=== PATIENT | male | born 1960 | race Caucasian/White ===

== ENCOUNTER 2023-04-23 05:57 | Day surgery (SDC) | payer BC, SELFPAY ==
[2023-04-23] VITALS (8 sets, daily range): BP systolic 100–121; BP diastolic 46–61; BMI 25.4
[2023-04-23] MEDS: LOW STRENGTH ASPIRIN 81 MG PO (07:20)
[2023-04-23] MEDS: NSS 255 ML IV (07:50)
--- NOTE | 2023-04-23 08:46 | ITS.CL.CATH ---
Pl Sql Programmer - Catheterization
Cardiac Catheterization
Procedure Report:
CARDIAC CATHETERIZATION REPORT
Date of Procedure: 04/23/2023
Referring: Cesar Rivera MD
INDICATIONS: Severe, symptomatic aortic insufficiency.
HEMODYNAMIC DATA
AO: 122/55 (88)
LV: 116
PCWP:
PA: (26)
RV:
RA:
LEFT VENTRICULOGRAPHY: Not performed.
AORTOGRAPHY: Ascending aortography shows a mildly dilated aortic root with 4+ aortic insufficiency.
CORONARY ANGIOGRAPHY
Dominance: Codominant.
Left Main: The left main is large sized and angiographically normal.
LAD: The left anterior descending is a large sized vessel that wraps the apex serving to medium diagonal branches. The entire system is angiographically normal.
Circumflex: The left circumflex is a large size, codominant vessel that serves a large bifurcating ramus intermedius, a small lateral marginal branch, 2 medium inferolateral marginal branches, and several small branch vessels to the left PDA
territory. The entire system is angiographically normal.
RCA: The right coronary artery is a medium sized, codominant vessel that serves several small branch vessels to the inferior myocardium. The entire system is angiographically normal.
Closure Device: Not applicable. Radial band utilized for radial artery hemostasis without issue.
Radiation dose (mGy): 473.01
DAP (cm2.Gy): 49.3332
Fluoro Time (minutes): 5.7
CONCLUSIONS:
1. Severe, symptomatic aortic insufficiency.
2. No angiographic evidence of coronary artery disease.
3. Moderately elevated wedge and left ventricular end-diastolic pressure with otherwise normal right and left heart catheterization pressures.
RECOMMENDATIONS:
1. Strongly recommend aortic valve replacement in the near future as an outpatient.
2. Continued preventative medical management.
Copy to: Cesar Rivera MD, Lucio Garcia MD
Torito Frank MD, [facility]
[2023-04-23] MEDS: NSS 1000 IV (10:15)
== END 2023-04-23 11:55 | disposition home or self-care (01) ==
LOC: CATH 05:57
PROVIDERS: ATTENDING PHYSICIAN Internal Medicine Interventional Cardiology; FAMILY PHYSICIAN Family Medicine; OTHER PHYSICIAN Internal Medicine Cardiovascular Disease
DX: I08.3 Combined rheumatic disorders of mitral, aortic and tricuspid valves (principal); I77.810 Thoracic aortic ectasia; Z79.82 Long term (current) use of aspirin
CPT/HCPCS: 93312; 93320; 93325; 93460; 93567; C1894; Q9967

== ENCOUNTER → 2023-05-03 07:43 | Outpatient (REF) | payer BC, SELFPAY | LOC: HWRAD 07:43 | PROVIDERS: ATTENDING PHYSICIAN Thoracic Surgery (Cardiothoracic Vascular Surgery); FAMILY PHYSICIAN Family Medicine; REFERRING PHYSICIAN Internal Medicine Cardiovascular Disease | DX: I34.0 Nonrheumatic mitral (valve) insufficiency (principal); I35.1 Nonrheumatic aortic (valve) insufficiency; Z01.818 Encounter for other preprocedural examination | CPT/HCPCS: 71275; 74174; Q9967 ==

== ENCOUNTER 2023-05-14 04:53 | Inpatient (IN) | payer BC, SELFPAY ==
[2023-04-30 08:22] VITALS: BMI 26.0
[2023-04-30 09:04] LABS: Urine Albumin Negative (Neg - Trace); Urine Bilirubin Negative (Negative); Urine Character Clear (Clear); Urine Color Yellow; Urine Glucose Negative (Negative); Urine Ketone Negative (Negative); Urine Leukocyte Negative (Negative); Urine Nitrite Negative (Negative); Urine Occult Blood Negative (Negative); Urine Urobilinogen Negative (Neg - 1+)
[2023-04-30 09:10] LABS: Glycohemoglobin (HgbA1c) 5.1 % (4.0-5.6)
[2023-04-30 09:11] LABS: % Basophils 0.4 % (0-2); % Eosinophils 2.7 % (0-6); % Immature Granulocytes 0.6 % (0-0.5); % Lymphocytes 16.3 % (20.5-51.1); Absolute Eosinophils 0.2 10^3/uL (0-0.7); Absolute Lymphocytes 1.2 10^3/uL (1.2-3.4); Absolute Monocytes 0.4 10^3/uL (0.1-0.6); Absolute Neutrophils 5.2 10^3/uL (1.4-6.5); Hematocrit 44.7 % (39.0-52.0); Hemoglobin 15.9 g/dL (13.0-18.0); Mean Corp Hgb Conc. 35.6 g/dL (33.0-37.0); Mean Corpuscular Hgb 31.5 pg (27.0-31.0); Mean Corpuscular Volume 88.5 fL (80.0-94.0); Mean Platelet Volume 11.4 fL (7.4-10.4); Nucleated Red Blood Cells % 0 % (-); Platelet Count 173 10^3/uL (130-400); Red Blood Cell Count 5.05 10^6/uL (4.70-6.10); Red Cell Dist. Width 13.4 % (11.5-14.5)
[2023-04-30 09:15] LABS: INR 1.12; PT 14.2 Sec (11.4-14.6)
[2023-04-30 09:24] LABS: ALT (SGPT) 34 U/L (0-50); AST (SGOT) 30 U/L (17-59); Albumin 4.1 g/dl (3.5-5.0); Alkaline Phosphatase 55 U/L (38-126); Blood Urea Nitrogen 23 mg/dl (9-20); Calcium 9.7 mg/dl (8.4-10.2); Carbon Dioxide 29 mmol/L (22-30); Chloride 101 mmol/L (98-107); Direct Bilirubin 0.3 mg/dl (0.0-0.4); Estimated Creatinine Clearance 100 ml/min; Glucose 106 mg/dl (70-99); Potassium 4.6 mmol/L (3.5-5.1); Sodium 138 mmol/L (135-145); Total Bilirubin 1.1 mg/dl (0.2-1.3); Total Protein 6.8 g/dl (6.3-8.2); eGFR > 60.00
--- NOTE | 2023-04-30 09:54 | CM ---
Chart reviewed. Met with the patient is PAT, Patient is independent of ADLS, lives with his in a 2 STH, 0 JAIRO through the garage but has a full flight of stairs to get to the main living space, 0 DME. Patient does use CPAP at night and is
going to bring it with him day of surgery. Patient is working. 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 Reviewed preoperative and postoperative instructions and restrictions, along with showering guidelines.
Gave patient 2 soaps. Patient is agreeable to a home visit by CT Transitional RN. Plan is for the patient to return home.
[2023-05-14] VITALS (13 sets, daily range): BP systolic 80–118; BP diastolic 48–76; PULSE 84; BMI 25.0
--- NOTE | 2023-05-14 00:22 | W.PN.CT ---
Assessment / Plan
-
Assessment:
-S/p Reoperative sternotomy with standard aortic and right femoral vein cannulation/Ascending Aorta and Aortic root replacement with a 29 mm valve conduit/Patch repair of right atrium using sioux pericardium/ Extensive adhesiolysis, by Dr. Garcia,
05/14/23, pod#1
-Severe AI
-Dilated Asc./thoracic aorta (4.2 cm)
-A-fib/flutter S/P ablation, 07/08/21
-Mild to moderate MR
-Mild TR
-LVEF 50% postop per intraop DAHIANA
-Hx of severe MR S/p R minithoracotomy with MV Repair (38 mm annuloplasty ring with [place]-Ventura cords to A2 scallop), 04/11/[address] Dawkins
-SOL (uses CPAP)
-Former tobacco use (quit 11 years ago)
-Lung nodule
-BPH (on Finasteride)
-Perforated diverticulitis S/P Laparoscopic sigmoid resection with creation of Luke pouch, 04/13/16
-S/P Colostomy reversal, 08/04/16
-Acute postop blood loss/anemia (transfused 3 {5pks} plts)
-Acute postop atelectasis/pleural effusion
-Acute postop hypovolemia with subsequent hypervolemia
-Acute postop sinus bradycardia 50's S/p temporary pacer dependent (AV paced @ 80 bpm)
-Acute postop hematuria (clearing)
Plan:
-No major issues overnight. Hemodynamically and neurologically intact
-Successfully extubated yesterday 05/14/23 @ 1740
-Weaned off Levophed overnight, remains on Dobutamine @ 2.5, Milrinone @ 0.25, and insulin gtt per protocol. Amiodarone and LR gtts d/c'd
-Last CI 2.4, SVO2 ,U/O since OR 1055 mL
-Monitor chest tube output: 2meds /
-Cont. current meds (ASA, Lipitor; hold Amiodarone and BB while on inotropes and paced)
-Maintain swan and a-line while on inotropes
-Will D/C insulin gtt/transfer to telemetry phase once swan and a-line out
-Consider maintaining carey another day given hx of BPH on Finasteride and postop hematuria
-Maintain cordis
-Maintain temporary pacer wires (will cut before d/c home)
-Encourage use of IS
-Wean off of O2
-OOB into chair
-Ambulate
Subjective
-
Date of Service: May 14, 2023
Objective Data
-
Lab Results
04/30/23 08:37
04/30/23 08:37
PT 14.2 Sec (11.4-14.6) 04/30/23 08:37
INR 1.12 04/30/23 08:37
APTT 36.0 Sec (23.4-35.0) H 04/30/23 08:37
--- NOTE | 2023-05-14 05:46 | W.CVOR.SURPR ---
CVOR Surgeon Immed Pre Op
-
I have examined this patient prior to performance of the scheduled procedure.
The patient's condition is unchanged from the time of the dictated/written History and
Physical and the patient is able to undergo the scheduled procedure.
Reoperative cardiac surgery
Aortic root replacement
MELANIE Exclusion
+/- Mitral Valve repair
+/- Additional Ablation lines
[2023-05-14] MEDS: LOPRESSOR 25 MG PO (06:04)
[2023-05-14] MEDS: PROTONIX 40 MG PO (06:04)
[2023-05-14] MEDS: BACTROBAN 2% OINTMENT 1 APPLIC NASAL ×2 (06:04→20:03)
[2023-05-14] MEDS: MAGNESIUM OXIDE 500 MG PO (06:04)
[2023-05-14 07:39] LABS: Urine Albumin Negative (Neg - Trace); Urine Bilirubin Negative (Negative); Urine Character Clear (Clear); Urine Color Yellow; Urine Glucose Negative (Negative); Urine Ketone Negative (Negative); Urine Leukocyte Negative (Negative); Urine Nitrite Negative (Negative); Urine Occult Blood Negative (Negative); Urine Specific Gravity 1.015 (<1.030); Urine Urobilinogen Negative (Neg - 1+)
[2023-05-14 07:52] LABS: ACT+ - POC 112 Seconds (82-134)
[2023-05-14 07:55] LABS: B.E. - POC -3.7 mmol/L; Glucose - POC 111 mg/dl (65-99); HCO3 - POC 22 mmol/L (21-29); Hematocrit - POC 37 % PCV (42-52); Hemodilution- POC No; Hemoglobin Calculated - POC 12.4; Ionized Calcium - POC 1.19 mmol/L (1.12-1.27); O2 Saturation %Calculated-POC 99.3 5 (92-96); PCO2 - POC 40 mmHg (35-45); PO2 - POC 158 mmHg (80-100); Potassium - POC 3.8 mmol/L (3.6-5.0); Sodium - POC 138 mmol/L (135-145); pH - POC 7.34 (7.35-7.45)
[2023-05-14 09:30] LABS: B.E. - POC 0.7 mmol/L; Glucose - POC 123 mg/dl (65-99); HCO3 - POC 25 mmol/L (21-29); Hematocrit - POC 32 % PCV (42-52); Hemodilution- POC Yes; Hemoglobin Calculated - POC 10.8; PCO2 - POC 38 mmHg (35-45); PO2 - POC 370 mmHg (80-100); Potassium - POC 5.5 mmol/L (3.6-5.0); Sodium - POC 140 mmol/L (135-145); pH - POC 7.43 (7.35-7.45)
--- NOTE | 2023-05-14 09:47 | CM ---
pt in OR today, cm to follow.
[2023-05-14 10:15] LABS: B.E. - POC -1.7 mmol/L; Glucose - POC 161 mg/dl (65-99); HCO3 - POC 24 mmol/L (21-29); Hematocrit - POC 35 % PCV (42-52); Hemodilution- POC Yes; Hemoglobin Calculated - POC 11.8; Ionized Calcium - POC 1.06 mmol/L (1.12-1.27); O2 Saturation %Calculated-POC 99.9 5 (92-96); PCO2 - POC 42 mmHg (35-45); PO2 - POC 315 mmHg (80-100); Potassium - POC 6.2 mmol/L (3.6-5.0); Sodium - POC 139 mmol/L (135-145); pH - POC 7.36 (7.35-7.45)
[2023-05-14 10:20] LABS: ACT+ - POC 985 Seconds (82-134)
[2023-05-14 11:02] LABS: ACT+ - POC 955 Seconds (82-134)
[2023-05-14 11:06] LABS: B.E. - POC -0.1 mmol/L; Glucose - POC 160 mg/dl (65-99); HCO3 - POC 25 mmol/L (21-29); Hematocrit - POC 32 % PCV (42-52); Hemodilution- POC Yes; Hemoglobin Calculated - POC 10.9; Ionized Calcium - POC 1.09 mmol/L (1.12-1.27); O2 Saturation %Calculated-POC 99.9 5 (92-96); PCO2 - POC 39 mmHg (35-45); PO2 - POC 342 mmHg (80-100); Potassium - POC 6.1 mmol/L (3.6-5.0); Sodium - POC 139 mmol/L (135-145); pH - POC 7.41 (7.35-7.45)
[2023-05-14 11:53] LABS: ACT+ - POC 101 Seconds (82-134)
[2023-05-14 12:04] LABS: B.E. - POC -0.2 mmol/L; Glucose - POC 154 mg/dl (65-99); HCO3 - POC 25 mmol/L (21-29); Hematocrit - POC 30 % PCV (42-52); Hemodilution- POC Yes; Hemoglobin Calculated - POC 10.1; Ionized Calcium - POC 1.36 mmol/L (1.12-1.27); O2 Saturation %Calculated-POC 99.3 5 (92-96); PCO2 - POC 40 mmHg (35-45); PO2 - POC 149 mmHg (80-100); Potassium - POC 4.5 mmol/L (3.6-5.0); Sodium - POC 143 mmol/L (135-145)
--- NOTE | 2023-05-14 13:13 | W.PN.CT.SURG ---
CT Surgery Operative Note
-
CARDIAC SURGERY OPERATIVE REPORT
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
Postoperative Diagnosis: Same
Procedure(s) Performed:
1. Reoperative sternotomy with standard aortic and right femoral vein cannulation
2. Ultrasound-guided access to the right common femoral vessels
3. Ascending Aorta and Aortic root replacement with a 29 mm valve conduit
4. Patch repair of right atrium using hughes pericardium
5. Extensive adhesiolysis
6. Placement of temporary atrial ventricular pacing wires
7. Transesophageal echocardiography
Date of Surgery: 05/14/23
Comorbidities:
1. History of open cardiac surgery, mitral valve repair
2. Severe dilated cardiomyopathy with acute on chronic congestive heart failure secondary to her severe aortic valve insufficiency from primary leaflet pathology combination of leaflet pathology and dilated root aneurysm
3. Diverticular disease status post sigmoidectomy for perforation and colostomy reversal
4. Recurrent mitral valve insufficiency, mild to moderate
5. Paroxysmal atrial tachycardia and atrial fibrillation status post ablation
6. SOL on CPAP
7. Lung nodule
Attending Surgeon: Percy Garcia MD, MS
Assistants: Casper Trujillo PA-C (present and necessary to assistant wrestling coach, retraction, suction, exposure, suture management, and wound closure under my direction)
Anesthesiology: Joel Kaiser MD and Matthew Mohr CRNA
Scrub and Circulating RNs: Vidhi Garcia RN, Mee Curry RN
Heel Sorter: Heath Lundberg CCP
Anesthesia: GETA
EBL: per perfusion records
Products: 3 plts
CPB Time: 170 minutes
Aortic Cross Clamp Time: 113 minutes
Indication(s) for Procedures: This is a 62-year-old male with previous mitral valve repair via thoracotomy in 2017. He had recurrent mitral valve insufficiency that was mild to moderate however more concerning that he had severe aortic valve
insufficiency that seem to have worsened over time. His LV was also distended with an end-diastolic over end-systolic dimension of 7 cm over 5 cm. His root was also dilated to approximately 5 cm on my review his annulus was significantly enlarged.
The mechanism of his aortic valve insufficiency appeared to be from a combination of the root dilation as well as primary leaflet pathology and prolapse. He had new onset symptoms of shortness of breath even with light activity and significant
fatigue. He met stage D symptomatology and possible indication for intervention.
Aortic Valve Description: Severely dilated annulus of over 3 cm, multiple leaflet fenestrations and prolapse of the left coronary cusp, root was dilated over 5 cm, left and right coronary ostia within normal hughes positions with the right slightly
higher in the sinus due to displacement from the aneurysm, ascending aorta was relatively normal in size and shape.
Findings: Left ventricular ejection fraction was approximately 50% with no significant regional wall motion abnormalities. He had severe LV dilation of over 7 cm and 5 cm in the end diastolic/end-systolic dimensions, respectively. RV function was
normal. PA pressures were in the 30s. He had mild to moderate mitral valve insufficiency secondary to prolapsing and scarring of the posterior leaflet with an eccentric jet that was directed anteriorly. There were dense adhesions upon entry to
the pericardium that required adhesiolysis as tissue was relatively friable with very thin right atrial tissue. Chest with traction of the pericardium, there was a tear of the right atrium that required pericardial patching. The aortic valve
leaflets were resected accordingly with minimal calcifications. The root size to be approximately 3.3 cm to 3.5 cm. The left and right coronary buttons were harvested in the usual fashion, and a total of 17 everting pledgeted 2 Ethibond sutures
were placed in order to help shrink down the annular size to accommodate a 29 mm valved conduit. Core knots were used to secure the pledgets in place and the coronary buttons were reimplanted using 5-0 Prolene in a running fashion. I did look at
the mitral valve through the root, however given the complex nature of the recurrent MR and the possibility of causing additional damage requiring a second pump run, I elected to leave the mitral valve alone. The heart was densely encased in scar
tissue and so I did not take out the left atrial appendage or performed maze procedure. Upon coming off of cross-clamp, there were 2 events of ventricular fibrillation likely secondary to air entrainment down the right coronary button requiring
electrical cardioversion. Following this, he was in slow bradycardic rhythm and required AV pacing. Function of the bioprosthesis was as expected, and there was no significant bleeding from around the base of the root. There was some bleeding
from the left coronary button at the 12 o'clock position which was repaired with 6-0 Prolene suture and packing with hemostatic agents. His cardiac function after cardiopulmonary bypass remained approximately 45-50% with no regional wall motion
abnormalities aside from the pacing. He did require inotropic support as expected with such a good LV was placed on low-dose milrinone and dobutamine with Levophed titrate for pressure. He was given a total of 3 units of platelets for coagulopathy
and did not require any other blood products for now. RV function was normal and flow was visualized by echocardiogram through the left main on Doppler.
Specimen(s): Aortic valve leaflets.
Prosthesis:
1. 29mm BOWLING KONECT Valved Conduit, SN [id number].
2. Bovine Pericardium, SN [id number].
Description of Procedure: The patient was taken to the operating room. Their identity and procedure to be performed were verified and they were positioned supine on the operating table. Induction via general anesthesia with endotracheal intubation
was performed and central venous access and arterial monitoring were inserted. A preoperative transesophageal echocardiogram was performed to assess cardiac function and valvular function. The patient was then prepped and draped from chin to feet in
a sterile fashion. A preoperative time-out was performed with all members of the team present. Ultrasound-guided access using Seldinger technique was performed to the right common femoral vessels in the event we encountered bleeding on entry. A
midline chest incision was performed along with median sternotomy. Upon entry to the pericardium, there was dense adhesions from his previous operation. Adhesions were particularly bad at the right atrium to pericardium on the right side. With
just gentle traction the pericardium there was a large tear of the right atrium requiring manual control and full heparinization was given (a total of 40,000 units). I then placed pursestring sutures at the ascending aorta and cannulated in the
usual fashion a soft spot free of calcium or disease. There is an appropriate balance and correlation and pressures of the line after being tested.. At this point, I cannulated the right common femoral vein using Seldinger technique and DAHIANA
guidance to visualize the wire across the SVC. A 25 mm femoral cannula was inserted into the right common femoral vein up into the SVC. The ACT was confirmed to be over 400 and retrograde autologous priming was performed before commencing
cardiopulmonary bypass. Now, I continued adhesiolysis on cardiopulmonary bypass and used hughes pericardium to patch repair the right atrial tear. We created a pericardial well. The pulmonary artery was away from the aorta to facilitate a
clamp site and aortotomy. A retrograde coronary sinus catheter was placed for the RA with DAHIANA guidance. The aortic cross-clamp was placed after decreasing the flow on the bypass and mean arterial pressure. An aortotomy was created to decompress the
heart and a total of combination dose of 1.2L of Del-Nido cardioplegia solution was given via retrograde with visual confirmation of flow in the left main and direct right/left ostial cardioplegia and planned for re-dosing every 90 minutes as
necessary. There was rapid electro-mechanical arrest of the heart at 800 cc (once 100cc of cardioplegia was given down the R coronary ostia) of cardioplegia. Cold slush was placed into a sponge and topically on the RV while we systemically cooled to
32 degrees centigrade.
Carbon dioxide was used to flood the field. The location of both left and right coronary vessels were visualized in the root. The aorta was fully transected above the STJ. Stay sutures were placed at each commissure to facilitate exposure. The
leaflets were excised and sent for pathological assessment. Stay sutures were placed at Next, the aortic sinuses were resected and the left main and right coronary buttons were mobilized. 4-0 pledgeted sutures were used to retract the buttons. A
total of 17 pledgeted 2-0 ethibond annular sutures were placed in an everted fashion circumferentially. These were brought through the sewing cuff of the valved conduit which as then parachuted into place. A Cor-Knot device was used to secure the
annular sutures. An eye cautery was used to first create a small opening to perform left main coronary button anastomosis. The button was then trimmed accordingly and using 5-0 Prolene, the button was reimplanted toward the Joe-left sinus. Volume
was then used to fill the heart to estimate the location for the right coronary button anastomosis. In a similar fashion an eye cautery was used to create a small opening in the joe-right sinus and anastomosis was created with 5-0 Prolene running
fashion. The root was then pressurized with cardioplegia to assess for hemostasis of both coronary buttons. The ascending aorta was then resected and the valved conduit was trimmed accordingly. The distal anastomosis was performed with a running
4-0 Prolene in a single layer using bovine pericardium as a gasket.
De-airing maneuvers were performed and temporary bipolar ventricular pacing wires were placed on the anterior of the right ventricle and temporary atrial pacing wires at the right atrial appendage. The patient was placed in a Trendelenburg position
and flows on bypass were lowered. The aortic cross clamp was removed and flows were slowly brought back up. The suture lines appeared hemostatic. Transesophageal echocardiography revealed no AI and appropriate prosthetic function. Once de-airing
was satisfactory, the ascending aortic root vent was removed. After verifying acceptable parameters, we initiated weaning from cardiopulmonary bypass. Once we were off cardiopulmonary bypass, the venous cannula was clamped and removed. The
retrograde coronary sinus catheter was removed. A test dose of protamine was administered and the patient was monitored for any adverse reaction before resuming protamine. Once half of the protamine dose was delivered, pump suckers were turned off
and the systolic blood pressure was lowered for aortic decannulation. The aortic cannula was removed and pursestrings were tied down. All cannulation sites were oversewn with a 4-0 prolene. There were still some bleeding around the 12o'clock
position that required a single 6-0 prolene suture in a [id number] fashion and packing with hemostatic agents. The suture lines were inspected and hemostasis was confirmed. Mediastinal hemostasis was obtained. Two 24Fr Renard drains were placed
within the pericardium. The sternum was approximated with 4 #7 single and 3 #8 double stainless steel wires. Fascia was approximated with #1 vicryl suture. The subcutaneous, dermis and epidermis were closed in layers in a running fashion. The skin
wound was cleansed and dressed.
All instrument, sponge, and needle counts were confirmed to be correct x 2 at the end of the operation. The patient was transferred to the cardiac intensive care unit in critical but stable condition.
I, Dr. Percy Garcia, was present, scrubbed for, and performed all critical elements of this procedure.
Percy Garcia MD, MS
Cardiothoracic Surgeon
[facility]
This dictation was created using the Quire dictation system. Please excuse any grammatical, typographical, or 'sound alike' errors
[2023-05-14 13:18] LABS: ACT+ - POC > 1003 Seconds (82-134)
[2023-05-14 13:18] LABS: ACT+ - POC > 1003 Seconds (82-134)
--- NOTE | 2023-05-14 13:18 | W.PN.CD ---
Addendum entered and electronically signed by Andrzej Nina MD 05/14/23 15:43:
I saw and examined the patient.
The CERTIFIED OPHTHALMIC TECHNICIAN's note was reviewed and I agree with the note.
Comment: Intraop DAHIANA report, post surgery EKG reviewed. Labs reviewed. Case reviewed with ICU nurse and Dr. Garcia. Doing well after AVR/root. Critically ill. Monitor closely.
Original Note:
Today's Communication / Plan
-
Follow telemetry
Impression / Plan
-
Background: 62M with �previous mitral valve repair via right minithoracotomy (38 mm ring annuloplasty with [place]-Ventura cords placed to the A2 scallop, 2016) with AI presents for AVR
Primary Java Software Developer: Dr. Cesar Rivera
Impression/Plan:
Severe aortic insufficiency S/P reoperative sternotomy with standard aortic and right femoral vein cannulation on 05/13/[address] Garcia
-Ascending Aorta and Aortic root replacement with a 29 mm valve conduit & patch repair of right atrium using rincon pericardium
-On milrinone, Levophed, & dobutamine, Wann in place
-Pre LVEF 50%, post 45-50% without RWMA
-Goal SBP <100mmHg
Acute blood loss anemia R/T cardiac surgery S/P platelet x 3 in OR
Mitral regurgitation S/P MV repair (2016), mild to moderate regurgitation
Paroxysmal atrial fibrillation S/P ablation 06/2021
-Sinus rhythm
-Oral Anticoagulation: None
-[id number]: 0 (<del>Heart</del> <del>failure,</del> <del>HTN,</del> <del>age</del> <del>73</del> <del>or</del> <del>more,</del> <del>Diabetes</del> <del>Mellitus,</del> <del>prior</del> <del>Stroke/TIA,</del> <del>Vascular</del>
<del>disease,</del> <del>age</del> <del>65-74,</del> <del>female</del> <del>gender</del>)
Perforated sigmoid diverticulitis w/ feculent peritonitis S/P Luke's procedure (2017) & subsequent reversal of colostomy
Paroxysmal atrial tachycardia S/P ablation
Former smoker, continued cessation recommended
Subjective:
Intubated and sedated on mechanical ventilation.
Physical Exam
Vital Signs/Labs
05/13/23 05/14/23 05/15/23
06:59 06:59 06:59
Actual Weight 82 kg
PT 14.2 Sec (11.4-14.6) 04/30/23 08:37
INR 1.12 04/30/23 08:37
APTT 36.0 Sec (23.4-35.0) H 04/30/23 08:37
Physical Exam
Constitutional: No acute distress and Comfortable
EENT: Anicteric and Moist mucous membranes
Cardiovascular: Rhythm & rate is regular (bradycardia) and S1S2 is normal
Respiratory: Lungs clear to auscul.
GI: Soft, Distention absent and Flat
Neuro/Psych: Other (sedated)
Other: Skin (warm and dry)
Data Reviewed
-
Date of Service: May 14, 2023
[2023-05-14] MEDS: ALBUMIN 5% 250 IV ×3 (13:30→16:42)
--- NOTE | 2023-05-14 13:34 | W.PN.UPDATE ---
Update Note
Progress Note Update
62 y/o male with PMHx of MVR and AI was seen in the office by Dr. Garcia presents electively for a AVR on 05/14/23
IV fluids: 1450ml
U.O.:� 300
UF:� 1400
Blood:� 3 plts
Wires:� A + V
Inotropes:� Dobutamine and Milrinone
Pressors:� Levophed
Sedatives:� Precedex
�
NEURO: sedated on precedex, pupils +2mm B/L
RESP: #8OT @24cm> 14/550/60/5 Lungs clear B/L. 2 mediastinal (15cc on arrival) chest tubes to -20cm suction. Sanguineous drainage
CV: RRR +S1, S2, no S3, no�rub, no murmur. Dermabond to median sternotomy. RIJ w/Carlisle locked @ 54cm. PA ; CVP 4;
ABD: round, soft, no BS
EXT: no edema, +1/4 DP pulses B/L, no femoral bruit, left radial A-line intact
: Carey with clear red urine
�
A/P: POD #0 s/p AVR #29mm [place] Konect valve
DAHIANA: EF�45-50%
- wean and extubate
- Right venous cannulation (must remove rubber stopped pre-discharge)
- will need instruction regarding antibiotic prophylaxis for dental and invasive procedures
- F/U MVO2, ABG, CXR, and post-op labs
- Weaned milrinone first and then keep dobutamine overnight as CI allows
- Titrate medications to goal SBP 80-100/ MAP > 60
- Continue swan; monitor CO/CI
- Hold off on ASA today
- F/U EKG
- Repeat TTE in 48 hours
- Cardiology consulted
�
# acute surgical blood loss anemia-expected
- trend CBC
- Transfusion goal Hgb >8.0
- s/p 3plts in the OR
- Hold Post-op ASA�
�
# Hyperglycemia
- insulin infusion x 24h
- SSI as needed when tolerating PO
#Hematuria
- Monitor for clots
- Continue carey
#Hx of GI perf
- Clear liquid x48 hrs
�
[2023-05-14 13:35] LABS: Glucose - Point of Care 159 mg/dl (70-99)
[2023-05-14 13:45] LABS: B.E. 0.6 mmol/L; Hematocrit 33.5 % (39.0-52.0); Hemoglobin 12.6 g/dL (13.0-18.0); Ionized Calcium 1.27 mMOL/L (1.15-1.33); O2 Saturation % 97.9 % (94-98); PCO2 44 mmHg (35-48); PO2 88 mmHg (83-108); Platelet Count 153 10^3/uL (130-400); Sodium 140 mMOL/L (136-145); pH 7.38 (7.35-7.45)
[2023-05-14 13:47] LABS: Mixed Venous O2 Saturation 64.7 %
[2023-05-14] MEDS: STERILE WATER FOR INJECTION 16 ML IV ×2 (13:47)
[2023-05-14] MEDS: ZINACEF 1500 MG IV ×2 (13:47)
[2023-05-14] MEDS: TYLENOL PO ×3 (13:51→19:30)
[2023-05-14] MEDS: NSS 500 IV (13:51)
[2023-05-14 13:52] LABS: INR 1.68; PT 19.7 Sec (11.4-14.6)
[2023-05-14] MEDS: THERAGRAN PO (13:52)
[2023-05-14 13:53] LABS: APTT 38.4 Sec (23.4-35.0)
[2023-05-14] MEDS: NSS (PRESERVATIVE FREE) 8 ML IV ×2 (13:54→20:05)
[2023-05-14] MEDS: PEPCID 20 MG IV ×2 (13:54→20:04)
--- NOTE | 2023-05-14 13:56 | CON.INTV ---
Consultation
Consultation Request
Date/Time Consultation Requested: 05/14/23
Date/Time Consultation Performed: 05/14/23
Medical History
-
History of Present Illness:
Patient is a 62-year-old male with previous history of severe mitral regurgitation status post repair with recurrent regurg, severe aortic insufficiency, with increasing fatigue and shortness of breath and worsening findings on recent
echocardiogram. He underwent redo intervention and postoperatively transferred to CVICU for further care.
Past Medical History
Past Medical History: Other (see list below)
Social History
Tobacco: Non-smoker
Alcohol: None
Drug: None
Family History
Family History: Reviewed & Not Pertinent
Allergies / Home Medications
Allergies
Allergy/AdvReac Type Severity Reaction Status Date / Time
cortisone Allergy Rash Verified 04/27/23 09:32
prednisone Allergy Rash Verified 04/27/23 09:32
lorazepam AdvReac hallucinati Verified 04/27/23 09:32
on
Home Medications
Medication Instructions Recorded Confirmed Last Taken Type
acetaminophen 500 mg tablet 1,000 mg PO Q6HPRN PRN pain 07/31/16 05/14/23 05/12/23 History
(Tylenol Extra Strength) 200 mg
ascorbic acid (vitamin C) 500 mg 1,000 mg PO BID Supplement 07/31/16 05/14/23 05/13/23 History
tablet (Vitamin C)
Fish Oil 1 cap PO QPM Supplement 04/23/23 05/14/23 05/07/23 History
Vitamin B-12 1 tab PO DAILY Supplement 04/23/23 05/14/23 05/07/23 History
albuterol sulfate 90 mcg/actuation 2 puff inhalation 6XD PRN SOB 04/23/23 05/14/23 04/26/23 History
aerosol inhaler (ProAir HFA)
aspirin 81 mg tablet,delayed 81 mg PO HS Blood Clot 04/23/23 05/14/23 05/11/23 History
release Prevention/Tx
cholecalciferol (vitamin D3) 50 50 mcg PO HS Supplement 04/23/23 05/14/23 05/13/23 History
mcg (2,000 unit) capsule (Vitamin
D3)
coenzyme Q10-red yeast rice 25 2 cap PO HS Supplement 04/23/23 05/14/23 05/07/23 History
mg-600 mg capsule
finasteride 5 mg tablet 5 mg PO QPM Urinary Issue 04/23/23 05/14/23 05/13/23 History
ibuprofen 200 mg tablet 200 mg PO Q6H PRN pain 04/23/23 05/14/23 05/11/23 History
multivitamin 1 tab PO DAILY Supplement 04/23/23 05/14/23 05/13/23 History
tadalafil 5 mg tablet 5 mg PO QPM Urinary Issue 04/23/23 05/14/23 05/11/23 History
Vicki 1 dose PO DAILY Supplement 04/27/23 05/14/23 05/10/23 History
Review of Systems
-
Unable to Obtain full review of systems at this time due to: Patient Intubation
Vitals / Labs / Diagnostic Testing
Vital Signs
Temp Pulse Resp BP Pulse Ox
95.9 F L 58 14 110/48 97
05/14/23 13:38 05/14/23 13:35 05/14/23 13:35 05/14/23 05:09 05/14/23 13:38
Laboratory Results
05/14/23
13:23
PT 19.7 H
INR 1.68
APTT 38.4 H
pH 7.38
pCO2 44
pO2 88
HCO3 26.0
O2 Delivery Level
Diagnostic Testing:
Physical Exam
-
HEENT: Normocephalic, Anicteric and Moist Mucous Membranes
Cardiovascular: S1/S2 and Regular Rhythm
Respiratory: Clear, Non-Labored Respirations and Other (chest tubes/ETT)
GI: Soft, Non Distended and Non Tender
Neurology: Other (sedated/intubated)
Skin: Warm, Dry and Good Color
General: Comfortable and Other (NAD)
Assessment
-
Patient is a 62-year-old male with previous history of severe mitral regurgitation status post repair with recurrent regurg, severe aortic insufficiency, with increasing fatigue and shortness of breath and worsening findings on recent
echocardiogram. He underwent redo intervention and postoperatively transferred to CVICU for further care.
Severe AI with severe LV dilation s/p AVR 05/14/23
Perioperative mechanical ventilation
Recurrent mitral disease due to prolapse w/ mild-mod MVI
Acute on chronic CHF, EF 50%
Pericardial adhesiolysis
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
History of severe mitral regurgitation with preserved LVEF s/p mitral valve repair via right anterior thoracotomy 2016
Recurrent mitral valve insufficiency, mild to moderate
Severe dilated cardiomyopathy with chronic congestive heart failure
Severe aortic valve insufficiency
Thoracic aneurysm without mention of rupture� �
Diverticular disease status post sigmoidectomy for perforation and end colostomy 2016
s/p colostomy reversal
Paroxysmal atrial tachycardia and atrial fibrillation status post ablation 06/2021
SOL on CPAP
COPD, mild
PFT 2017: FEV1 3.27L 82%, FVC 5.18L 99%, ratio 63
Moderate centrilobular emphysema noted on CT
History of hernia repair� � 2021�
Plan
S/p AVR POD #0
Titrate off pressors per protocol
ECHO reviewed with low function, EF 50%
PA catheter readings reviewed
Management of chest tubes per primary service
Intubated/sedated, initiate SAT when able
Pain control
RASS goal of 0 to -1
Intubated for procedure, SBT trial when patient able to spontaneously breath
Current vent settings: SIMV 550/14/60/5
ABG(s) reviewed-adequate
CXR with no obvious opacities/infiltrates, low lung volumes, ETT at aortic arch but high above jose m, lines/tubes in place
CT showing emphysema in past
Extubate per protocol
Maintain supplement oxygen as needed
Prior history of pulmonary disease: COPD/emphysema, nodules are noted
Prior PFTs reviewed--mild obstruction, last taken in 2017, will need repeat testing as OP
Can add nebulizers if needed
Review of recent CT not showing nodules in lungs
Can follow lung cancer screening if indicated as OP
Aspiration precautions
Encouraged incentive spirometry, OOB/ambulation/early mobility
Advance diet as tolerated following extubation
GI prophylaxis if indicated for mechanical ventilation >48 hours
Monitor critical I/O's
Lowe/chest tube output
Hb/platelets postoperatively stable, transfusions were noted intraop
Trend CBC for now
Can transfuse if indicated for Hb <7, plt <50 in surgical patients
DVT prophylaxis including SCDs
We will follow
Diagnostic Data
CXR 05/14/23- The patient is intubated. The endotracheal tube is high, at the thoracic inlet, 6 cm above the jose m. [place]Hoda catheter tip overlies the main pulmonary artery segment. Mediastinal drain and inverted U-shaped drain is noted in the
midline. The patient is status post median sternotomy and valve replacement. Heart size is mildly enlarged. The aorta is unfolded and atherosclerotic. There is a small amount of lucency along the left cardiac border suggesting minimal pericardial
air. Postoperative. Probable tiny inferior lateral right pneumothorax. Limited visualization of the left lung base due to the overlying external pad on the left chest. There is stranding in both lung bases. Left greater than right. Most consistent
with postoperative atelectasis.
DAHIANA 05/14/23- Dilated left ventricle with low-normal systolic function.� LVEF is 50%.� S/P�mitral valve repair with wall-hugging anterior jet of moderate regurgitation.��Severe aortic insufficiency resulting from prolapsed left leaflet and
dilated�aortic root.
C 04/23/23: HEMODYNAMIC DATA
AO: 122/55 (88)
LV: 116/
PCWP: 20/24/19
PA: ()
RV:
RA:
1.� Severe, symptomatic aortic insufficiency.
2.� No angiographic evidence of coronary artery disease.
3.� Moderately elevated wedge and left ventricular end-diastolic pressure with otherwise normal right and left heart catheterization pressures.
�
CT CAP 05/03/23- 1. Dilatation of the aortic root at the level of the sinuses of Valsalva measuring 4.7 cm in diameter. Normal caliber of the remainder of the thoracic aorta and abdominal aorta. Minor calcified atherosclerosis of the abdominal aorta
and bilateral common iliac arteries.
2. Moderate cardiac enlargement.
3. Moderate centrilobular and paraseptal emphysema.
4. Mild splenomegaly.
5. Bilateral complex renal cysts with some interval enlargement from previous examinations.
6. Prior sigmoid resection and anastomosis.
7. Prostatomegaly.
PFT 2017: FEV1 3.27L 82%, FVC 5.18L 99%, ratio 63. Post FEV1 3.93L 99%, +BD response. TLC 8.02L 107%, DLCO 60% (mild obstruction, mild diffusion impairment)
-----
Critical Care time 50 mins -- The patient is admitted for acute critical illness for the treatment of vital organ failure and/or prevention of further life-threatening conditions. Total care includes time spent in review of history, physical exam,
medications, hemodynamic/ventilator parameters, laboratory data, imaging and discussion with house staff, pharmacy, respiratory therapy, adjunct psychology faculty member, and nursing.
--- NOTE | 2023-05-14 14:00 | PTCARENOTE ---
pt received from CVOR, sedated on Precedex gtt, RASS -5. core temp 95.9F, bear hugger applied as ordered. pt SB/SR on the monitor, HR 50s/60s. A&V wires in place, set to VVI 40/10. SBP labile, pt on Levophed gtt, titrated as ordered. Hemosphere
connected to patient, CARGO WORKER aware of hemodynamics. Dobutamine gtt running as ordered, Milrinone gtt running as ordered. palpable pulses, no edema. pt mechanically ventilated, ETT #8.0, 24cm@lip. SIMV 14, TV 550, PEEP 5, PS 5, FIO2 60%. POX 97-99%.
lungs clear, suctioned for clear thin sputum. CT x2, no air leak or crepitus noted. pt abdomen s/n, hypoactive BS. Lowe in place, clear red urine, CARGO WORKER aware. sternal incision approximated, surgical adhesive in place. chest tube site c/d/i. R groin
c/d/i. RIJ cordis/swan maintained. L radial Jenn flushed, zeroed, and calibrated. PIV x2. insulin gtt running per protocol. lab work drawn, EKG performed, CXR completed. Albumin x2 given as ordered. see worklist for VS, I&O, and assessment.
[2023-05-14 14:08] LABS: Glucose - Point of Care 168 mg/dl (70-99)
[2023-05-14 14:14] LABS: Blood Urea Nitrogen 19 mg/dl (9-20); Estimated Creatinine Clearance 100 ml/min; Glucose 162 mg/dl (70-99)
[2023-05-14] MEDS: VERSED 0.5 MG IV (14:52)
[2023-05-14 15:07] LABS: Glucose - Point of Care 151 mg/dl (70-99)
[2023-05-14] MEDS: CORDARONE 518 MG IV (15:22)
[2023-05-14] MEDS: PACERONE PO (16:00)
--- NOTE | 2023-05-14 16:00 | PTCARENOTE ---
pt opens eyes to voice, nods appropriately, VELA. follow commands. drowsy. denies pain. SOUND ENGINEERING TECHNICIAN aware of ectopy, Amiodarone gtt ordered. attempted CPAP, too drowsy, had periods of apnea. SOUND ENGINEERING TECHNICIAN and Dr. Garcia aware of hemodynamics.
[2023-05-14 16:06] LABS: Glucose - Point of Care 122 mg/dl (70-99)
--- NOTE | 2023-05-14 17:00 | PTCARENOTE ---
PLATE DRYING MACHINE TENDER adjusted epicardial wire settings, DDD 70/10/10. SVR improved w/ pacing. pt placed on CPAP trial, has periods of apnea, pt nodded head yes to history of sleep apnea, PLATE DRYING MACHINE TENDER aware. pt washed w/ CHG wipes, gown changed, face washed. oral hygiene
performed, sequentials in place.
[2023-05-14 17:13] LABS: Glucose - Point of Care 131 mg/dl (70-99)
[2023-05-14 17:29] LABS: HCO3 27.9 mmol/L (21-28); Ionized Calcium 1.22 mMOL/L (1.15-1.33); PCO2 43 mmHg (35-48); PO2 120 mmHg (83-108); pH 7.42 (7.35-7.45)
[2023-05-14 17:30] LABS: Hematocrit 29.9 % (39.0-52.0); Hemoglobin 11.2 g/dL (13.0-18.0); Platelet Count 152 10^3/uL (130-400)
[2023-05-14 17:32] LABS: Mixed Venous O2 Saturation 66.4 %
[2023-05-14] MEDS: OFIRMEV 100 IV (17:32)
[2023-05-14] MEDS: ZOFRAN 4 MG IV (17:33)
[2023-05-14 18:09] LABS: Glucose - Point of Care 121 mg/dl (70-99)
[2023-05-14] MEDS: LR 1000 IV (18:09)
--- NOTE | 2023-05-14 18:21 | PTCARENOTE ---
ABG, MVO2, and H&H drawn. ENTRY LEVEL MARKETING REPRESENTATIVE aware of results. pt extubated @1740 to 6LNC, oriented x4. IS 2000ml. S.O. Cecilia at bedside. Ofirmev and PRN Zofran given as ordered. LR @50ml/hr as ordered. pt has own CPAP from home.
[2023-05-14] MEDS: SENOKOT-S PO (19:37)
--- NOTE | 2023-05-14 20:00 | PTCARENOTE ---
assumed care of pt from previous RN. pt oriented x4, drowsy. R IJ cordis w/ swan. amio, dobutamine, milrinone, levo, and insulin infusing. see flowsheet for details. L radial a-line. all lines leveled, zeroed, flushed. PIV x2 intact. temp epicardial
A/V wires w/ settings DDD 80/15/13. 100% A/V paced on tele-monitor. hemosphere connected to a-line. CT x2 (mediastinal) to -20 cm wall suction, draining sanguineous drainage. no air leaks noted. POX 97% on 4 L NC. IS encouraged. abd s/n, hypoactive
BS. pt tolerating ice chips. carey catheter in place, draining clear, yellow urine. sternal incision approximated w/ surgi-glue, HAND SCREEN PRINTER. R groin puncture site w/ original dressing, CDI. see worklist for complete nursing assessment, interventions, VS,
and I&Os.
[2023-05-14] MEDS: ZINACEF 750 MG IV (20:03)
[2023-05-14] MEDS: STERILE WATER FOR INJECTION 8.30000000000000071 ML IV (20:04)
[2023-05-14 20:16] LABS: Glucose - Point of Care 133 mg/dl (70-99)
[2023-05-14] MEDS: ROXICODONE 5 MG PO (20:22)
[2023-05-14 22:08] LABS: Glucose - Point of Care 115 mg/dl (70-99)
[2023-05-14] MEDS: VITAMIN D3 (cholecalciferol) 50 MCG PO (22:11)
[2023-05-14 22:37] LABS: Mixed Venous O2 Saturation 71.7 %
[2023-05-14 23:13] LABS: Glucose - Point of Care 94 mg/dl (70-99)
[2023-05-15] VITALS (30 sets, daily range): BP systolic 86–131; BP diastolic 65–95; PULSE 63; BMI 26.5
--- NOTE | 2023-05-15 | PTCARENOTE ---
pt reassessed. 100% A/V paced on tele-monitor. POX 99% on [address] drainage and U/O WNL. see worklist for interventions, VS, and I&Os.
[2023-05-15 00:08] LABS: Glucose - Point of Care 104 mg/dl (70-99)
[2023-05-15] MEDS: TYLENOL 650 MG PO ×3 (00:16→08:26)
[2023-05-15] MEDS: REGLAN 10 MG IV ×3 (00:17→17:25)
[2023-05-15] MEDS: PRIMACOR 20 MG 100 IV (00:17)
[2023-05-15] MEDS: ROXICODONE 5 MG PO ×3 (00:17→08:27)
[2023-05-15 01:25] LABS: Glucose - Point of Care 112 mg/dl (70-99)
[2023-05-15 02:12] LABS: Glucose - Point of Care 98 mg/dl (70-99)
[2023-05-15 03:24] LABS: Hematocrit 28.1 % (39.0-52.0); Hemoglobin 10.2 g/dL (13.0-18.0); Mean Corp Hgb Conc. 36.3 g/dL (33.0-37.0); Mean Corpuscular Hgb 31.2 pg (27.0-31.0); Mean Corpuscular Volume 85.9 fL (80.0-94.0); Mean Platelet Volume 11.3 fL (7.4-10.4); Platelet Count 118 10^3/uL (130-400); Red Blood Cell Count 3.27 10^6/uL (4.70-6.10); Red Cell Dist. Width 13.2 % (11.5-14.5)
[2023-05-15 03:25] LABS: Ionized Calcium 1.15 mMOL/L (1.15-1.33)
[2023-05-15 03:49] LABS: Blood Urea Nitrogen 23 mg/dl (9-20); Calcium 8.1 mg/dl (8.4-10.2); Carbon Dioxide 25 mmol/L (22-30); Chloride 112 mmol/L (98-107); Estimated Creatinine Clearance 100 ml/min; Glucose 102 mg/dl (70-99); Magnesium 2.2 mg/dl (1.6-2.3); Potassium 3.8 mmol/L (3.5-5.1); Sodium 139 mmol/L (135-145); eGFR > 60.00
--- NOTE | 2023-05-15 03:53 | W.PN.CT ---
Addendum entered and electronically signed by Percy Garcia MD 05/15/23 12:48:
I saw and examined the patient.
The PA's note was reviewed and I agree with the note.
Comment:
Doing well, start asa, start bb once off DTX. Go off Mixed Venous and [place] for indices. Clear liquid diets for 24-48 hours given GI history.
Original Note:
Today's Communication / Plan
-
Plan:
-No major issues overnight. Hemodynamically and neurologically intact
-Successfully extubated yesterday 05/14/23 @ 1740
-Weaned off Levophed overnight, Primacor was weaned off this AM @ 0500. Remains on Dobutamine @ 2.5, LR @ 50 ml/hr, and insulin gtt per protocol. Amiodarone gtt d/c'd
-Pt no longer requiring pacing, intrinsic rhythm is NSR @ 72 bpm
-Last CI 3.06, U/O since OR 970 mL
-Monitor chest tube output: 2meds 110/280
-Cont. current meds (ASA, Lipitor; hold Amiodarone and BB while on dobutamine)
-Maintain swan and a-line while on dobutamine, wean off dobutamine as tolerated
-Will D/C insulin gtt/transfer to telemetry phase once swan and a-line out
-Consider maintaining carey another day given hx of BPH on Finasteride and postop hematuria
-Maintain cordis
-Maintain temporary pacer wires (will cut before d/c home)
-Encourage use of IS
-Wean off of O2
-OOB into chair
-Ambulate
Assessment / Plan
-
Assessment:
-S/p Reoperative sternotomy with standard aortic and right femoral vein cannulation/Ascending Aorta and Aortic root replacement with a 29 mm valve conduit/Patch repair of right atrium using [place] pericardium/ Extensive adhesiolysis, by Dr. Garcia,
05/14/23, pod#1
-Severe AI
-Dilated Asc./thoracic aorta (4.2 cm)
-A-fib/flutter S/P ablation, 07/08/21
-Mild to moderate MR
-Mild TR
-LVEF 50% postop per intraop DAHIANA
-Hx of severe MR S/p R minithoracotomy with MV Repair (38 mm annuloplasty ring with [place] cords to A2 scallop), 04/11/[address] Dawkins
-SOL (uses CPAP)
-Former tobacco use (quit 11 years ago)
-Lung nodule
-BPH (on Finasteride)
-Perforated diverticulitis S/P Laparoscopic sigmoid resection with creation of Luke pouch, 04/13/16
-S/P Colostomy reversal, 08/04/16
-Acute postop blood loss/anemia (stable with transfusion of PRBCs)
-Acute postop thrombocytopenia (transfused 3 {5pks} plts, was given intraop)
-Acute postop atelectasis/pleural effusion
-Acute postop hypovolemia with subsequent hypervolemia
-Acute postop sinus bradycardia 50's S/p temporary pacer dependent (AV paced @ 80 bpm)
-Acute postop hematuria (clearing)
Discussed patient care with: Cardiology, Nursing, Respiratory Therapy, Pharmacy and Care Team
Subjective
Procedure
S/p Reoperative sternotomy with standard aortic and right femoral vein cannulation/Ascending Aorta and Aortic root replacement with a 29 mm valve conduit/Patch repair of right atrium using [place] pericardium/ Extensive adhesiolysis, by Dr. Garcia,
05/14/23
-
Date of Service: May 15, 2023
Pt c/o incisional pain, otherwise feels well
Objective Data
-
Lab Results
05/15/23 03:13
05/15/23 03:13
PT 19.7 Sec (11.4-14.6) H 05/14/23 13:23
INR 1.68 05/14/23 13:23
APTT 38.4 Sec (23.4-35.0) H 05/14/23 13:23
Vital Signs
Vital Signs
Temp Pulse Resp BP Pulse Ox
97.3 F 80 11 103/70 94
05/15/23 03:00 05/15/23 03:30 05/15/23 03:30 05/15/23 03:00 05/15/23 03:30
CT Intake/Output/Weight
05/14/23 05/14/23 05/15/23
06:59 18:59 06:59
Intake Total 1160.5 / 1956.4 795.9 / 1956.4
Output Total 530 / 1150 620 / 1150
Balance 630.5 / 806.4 175.9 / 806.4
SaO2: 94 (2L)
Physical Exam
-
General: Awake, Oriented and AOx3
Cardiovascular: Regular rate & rhythm, No Murmurs, No Rub and No Gallop
Respiratory: Decreased Breath Sounds (at bases, otherwise clear)
Sternum: Stable
Incision: Clean, Dry, Intact and Dressing Intact
Extremities: No Edema
Data Reviewed
-
Lab Results: Results Reviewed
Medications: Active Meds Reviewed
Chest X-Ray: Report Reviewed and Image Reviewed
ECG: Report Reviewed and Image Reviewed
[2023-05-15 04:03] LABS: Glucose - Point of Care 115 mg/dl (70-99)
[2023-05-15] MEDS: ZINACEF 750 MG IV ×2 (04:14→12:27)
[2023-05-15] MEDS: STERILE WATER FOR INJECTION 8.30000000000000071 ML IV ×2 (04:15→12:27)
--- NOTE | 2023-05-15 04:15 | PTCARENOTE ---
assessment remains unchanged. pacer paused for AM EKG. underlying rhythm NSR, 70 bpm. temp epicardial pacer set to back up by CVPA. CT drainage and U/O WNL. see worklist for interventions, VS, and I&Os.
[2023-05-15] MEDS: KCL 50 IV (04:27)
[2023-05-15 05:09] LABS: Mixed Venous O2 Saturation 68.8 %
[2023-05-15 06:00] LABS: Glucose - Point of Care 104 mg/dl (70-99)
[2023-05-15] MEDS: LASIX IV (07:37)
--- NOTE | 2023-05-15 07:56 | W.PN.ANS.POP ---
Anesthesia Post Operative
- Anesthesia Post Op Note
Vital Signs Stable-See Nursing Note: Yes (remains on dobutamine gtt - stable)
Airway Patent: Yes
Adequate Pain Control: Yes
Change in Mental Status: No
Current Postoperative Nausea & Vomiting: No
Anesthesia Complications: No
General Anesthetic Recall: No
Unplanned Admission: No
Post Op Hydration Adequate: Yes
--- NOTE | 2023-05-15 08:00 | PTCARENOTE ---
pt received from previous RN, oriented, in bed. SR on the monitor, HR 70-80s. pt had 24 beat run of VT, TRAFFIC SUPERINTENDENT aware, pt asymptomatic. A&V wires in place, disconnected from box per Dr. Garcia. SBP 110-120s. CI >2, PAP ~24/6. Hemosphere in place.
Dobutamine gtt running as ordered. palpable pulses. pt on 1LNC, 93-95% POX. lungs diminished in bases. IS encouraged. pt abdomen s/n, denies n/v. tolerating clears. hypoactive BS, pt states +flatus. Lowe in place, clear yellow urine. sternal
incision approximated, [place], surgical adhesive in place. chest tube dressing c/d/i. R groin c/d/i, no s/s of bleeding or hematoma. RIJ cordis/swan maintained. L radial Mely flushed, zeroed, and calibrated. PIV x2. LR IVF @50ml/hr. insulin gtt
running per protocol. see worklist for VS, I&O, and assessment.
[2023-05-15 08:01] LABS: Glucose - Point of Care 77 mg/dl (70-99)
[2023-05-15] MEDS: MAGNESIUM OXIDE 500 MG PO ×2 (08:26→20:14)
[2023-05-15] MEDS: LOW STRENGTH ASPIRIN 81 MG PO (08:26)
[2023-05-15] MEDS: THERAGRAN 1 TABLET PO (08:26)
[2023-05-15] MEDS: VITAMIN B-12 1000 MCG PO (08:26)
[2023-05-15] MEDS: SENOKOT-S 1 TABLET PO ×2 (08:26→20:13)
[2023-05-15] MEDS: PACERONE 200 MG PO ×3 (08:27→22:13)
[2023-05-15] MEDS: PROSCAR 5 MG PO (08:27)
[2023-05-15] MEDS: BACTROBAN 2% OINTMENT 1 APPLIC NASAL ×2 (08:27→20:19)
[2023-05-15] MEDS: KCL PO (08:34)
[2023-05-15 09:09] LABS: Glucose - Point of Care 87 mg/dl (70-99)
[2023-05-15 09:20] LABS: Mixed Venous O2 Saturation 63.3 %
--- NOTE | 2023-05-15 09:45 | PTCARENOTE ---
Dobutamine gtt off @~0800, STAVE CUTTER aware of 0900 hemodynamics and MVO2. pt given Roxicodone for pain. denies n/v.
[2023-05-15 10:07] LABS: Glucose - Point of Care 91 mg/dl (70-99)
[2023-05-15] MEDS: LOPRESSOR 12.5 MG PO ×2 (10:17→20:14)
[2023-05-15] MEDS: LIDOCAINE 4% PATCH 1 PATCH TOPICAL (10:51)
[2023-05-15 11:17] LABS: Glucose - Point of Care 112 mg/dl (70-99)
--- NOTE | 2023-05-15 12:01 | PTCARENOTE ---
L radial [place] dc'd as ordered, dressing c/d/i. DEEJAY Ap[place] dc'd as ordered. chest tube dressing changed, A&V wires insulated as ordered. pt OOB to chair w/ assist. back lotioned. oral hygiene performed. Cecilia at bedside.
[2023-05-15] MEDS: ROXICODONE 10 MG PO ×2 (12:26→17:05)
[2023-05-15 12:32] LABS: Glucose - Point of Care 99 mg/dl (70-99)
--- NOTE | 2023-05-15 13:07 | W.PN.INTV ---
Today's Communication / Plan
Recommendations
Doing well post extubation, supplemental O2/wean as tolerated
Chest tube per team
Encouraged IS/ambulation
Resume home inhalers
Follows with [facility] Pulmonary-can follow again as OP
Transfer process initiated to tele, we will sign off upon transfer, please call with questions
Assessment
-
Patient is a 62-year-old male with previous history of severe mitral regurgitation status post repair with recurrent regurg, severe aortic insufficiency, with increasing fatigue and shortness of breath and worsening findings on recent
echocardiogram. He underwent redo intervention and postoperatively transferred to CVICU for further care.
Severe AI with severe LV dilation s/p AVR 05/14/23
Perioperative mechanical ventilation
Recurrent mitral disease due to prolapse w/ mild-mod MVI
Acute on chronic CHF, EF 50%
Pericardial adhesiolysis
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
History of severe mitral regurgitation with preserved LVEF s/p mitral valve repair via right anterior thoracotomy 2016
Recurrent mitral valve insufficiency, mild to moderate
Severe dilated cardiomyopathy with chronic congestive heart failure
Severe aortic valve insufficiency
Thoracic aneurysm without mention of rupture� �
Diverticular disease status post sigmoidectomy for perforation and end colostomy 2016
s/p colostomy reversal
Paroxysmal atrial tachycardia and atrial fibrillation status post ablation 06/2021
SOL on CPAP
COPD, mild
PFT 2017: FEV1 3.27L 82%, FVC 5.18L 99%, ratio 63
Moderate centrilobular emphysema noted on CT
History of hernia repair� � 2021�
Plan
S/p AVR POD #1
Off pressors per protocol
ECHO reviewed with low function, EF 50%
Management of chest tubes per primary service
Pain control
RASS goal of 0 to -1
Intubated for procedure, extubated 05/14/23 and doing well
ABG(s) reviewed-adequate
CXR with stable post op changes
CT showing emphysema in past--he is aware
Following with pulmonary at [facility]
Maintain supplement oxygen as needed
Prior history of pulmonary disease: COPD/emphysema, nodules are noted
Prior PFTs reviewed--mild obstruction, last taken in 2017, will need repeat testing as OP
Can add nebulizers if needed/resume home inhalers
Review of recent CT not showing nodules in lungs
Can follow lung cancer screening if indicated as OP--defer to [facility] Pulmonary
SOL on CPAP, can resume home device use
Aspiration precautions
Encouraged incentive spirometry, OOB/ambulation/early mobility
Advance diet as tolerated following extubation
GI prophylaxis if indicated for mechanical ventilation >48 hours
Monitor critical I/O's
Lowe/chest tube output
Hb/platelets postoperatively stable, transfusions were noted intraop
Trend CBC for now
Can transfuse if indicated for Hb <7, plt <50 in surgical patients
DVT prophylaxis including SCDs
Diagnostic Data
CXR 05/14/23- The patient is intubated. The endotracheal tube is high, at the thoracic inlet, 6 cm above the jose m. [place]-Hoda catheter tip overlies the main pulmonary artery segment. Mediastinal drain and inverted U-shaped drain is noted in the
midline. The patient is status post median sternotomy and valve replacement. Heart size is mildly enlarged. The aorta is unfolded and atherosclerotic. There is a small amount of lucency along the left cardiac border suggesting minimal pericardial
air. Postoperative. Probable tiny inferior lateral right pneumothorax. Limited visualization of the left lung base due to the overlying external pad on the left chest. There is stranding in both lung bases. Left greater than right. Most consistent
with postoperative atelectasis.
DAHIANA 05/14/23- Dilated left ventricle with low-normal systolic function.� LVEF is 50%.� S/P�mitral valve repair with wall-hugging anterior jet of moderate regurgitation.��Severe aortic insufficiency resulting from prolapsed left leaflet and
dilated�aortic root.
C 04/23/23: HEMODYNAMIC DATA
AO: 122/55 (88)
LV: 116/
PCWP: 20/24/19
PA: ()
RV:
RA:
1.� Severe, symptomatic aortic insufficiency.
2.� No angiographic evidence of coronary artery disease.
3.� Moderately elevated wedge and left ventricular end-diastolic pressure with otherwise normal right and left heart catheterization pressures.
�
CT CAP 05/03/23- 1. Dilatation of the aortic root at the level of the sinuses of Valsalva measuring 4.7 cm in diameter. Normal caliber of the remainder of the thoracic aorta and abdominal aorta. Minor calcified atherosclerosis of the abdominal aorta
and bilateral common iliac arteries.
2. Moderate cardiac enlargement.
3. Moderate centrilobular and paraseptal emphysema.
4. Mild splenomegaly.
5. Bilateral complex renal cysts with some interval enlargement from previous examinations.
6. Prior sigmoid resection and anastomosis.
7. Prostatomegaly.
PFT 2017: FEV1 3.27L 82%, FVC 5.18L 99%, ratio 63. Post FEV1 3.93L 99%, +BD response. TLC 8.02L 107%, DLCO 60% (mild obstruction, mild diffusion impairment)
-----
Critical Care time 32 mins -- The patient is admitted for acute critical illness for the treatment of vital organ failure and/or prevention of further life-threatening conditions. Total care includes time spent in review of history, physical exam,
medications, hemodynamic/ventilator parameters, laboratory data, imaging and discussion with house staff, pharmacy, respiratory therapy, machine room engineer, and nursing.
Subjective Dataa
Subjective Data
Date of Service:
Date of Service: May 15, 2023
Chief Complaint: Machine Fixer Follow Up
Subjective:
doing well, extubated and now on NC
no new complaints
chest tubes in place
Objective Data
Data Reviewed
Vital Signs / I&O / Oxygen:
Vital Signs
Temp Pulse Resp BP Pulse Ox
98.1 F 84 17 119/83 95
05/15/23 10:00 05/15/23 12:30 05/15/23 12:30 05/15/23 12:00 05/15/23 12:30
Intake and Output
05/14/23 05/15/23 05/16/23
06:59 06:59 06:59
Intake Total 2196.9 / 2262.4 414.4 / 414.4
Output Total 1330 / 1410 560 / 560
Balance 866.9 / 852.4 -145.6 / -145.6
SaO2 [SIMV] 99
SaO2 95
Nasal Cannula flow liters per 2
minute
Physical Exam
General: Comfortable and Other (NAD)
HEENT: Normocephalic, Anicteric and Moist Mucous Membranes
Cardiovascular: S1-S2 and Regular Rhythm
Respiratory: Clear, Non-Labored Respirations and Chest Tube
GI: Soft, Non Distended and Non Tender
Neurology: Awake, Alert, Oriented, AO x 3 and No Motor Deficits
Skin: Warm, Dry and Good Color
Labs/Micro/Reports
Lab Data
05/15/23 03:13
05/15/23 03:13
Laboratory Results
05/14/23 05/14/23
13:23 17:07
PT 19.7 H
INR 1.68
APTT 38.4 H
pH 7.38 7.42
pCO2 44 43
pO2 88 120 H
HCO3 26.0 27.9
O2 Delivery Level
--- NOTE | 2023-05-15 13:09 | W.PN.CD ---
Today's Communication / Plan
-
Monitor rhythm
Activity per protocol
Impression / Plan
-
Background: 62M with �previous mitral valve repair via right minithoracotomy (38 mm ring annuloplasty with [place]-Ventura cords placed to the A2 scallop, 2017) with AI presents for AVR
Primary Sheet Cutter: Dr. Cesar Rivera
Impression/Plan:
Severe aortic insufficiency S/P reoperative sternotomy with standard aortic and right femoral vein cannulation on 05/13/[address] Garcia
-Ascending Aorta and Aortic root replacement with a 29 mm valve conduit & patch repair of right atrium using [place] pericardium
- OFF pressors
- Looks and feels well for POD 1
-Pre LVEF 50%, post 45-50% without RWMA
-Goal SBP <100mmHg
Acute blood loss anemia R/T cardiac surgery S/P platelet x 3 in OR
WCT
- Ripped off a run approx 15 beats at 165
- [place] due to R and T from pacer spike. Pacer disconnected at that time and no recurrence
Mitral regurgitation S/P MV repair (2017), mild to moderate regurgitation
Paroxysmal atrial fibrillation S/P ablation 06/2021
-Sinus rhythm
-Oral Anticoagulation: None
-[id number]: 0 (<del>Heart</del> <del>failure,</del> <del>HTN,</del> <del>age</del> <del>73</del> <del>or</del> <del>more,</del> <del>Diabetes</del> <del>Mellitus,</del> <del>prior</del> <del>Stroke/TIA,</del> <del>Vascular</del>
<del>disease,</del> <del>age</del> <del>65-74,</del> <del>female</del> <del>gender</del>)
Perforated sigmoid diverticulitis w/ feculent peritonitis S/P Luke's procedure (2017) & subsequent reversal of colostomy
Paroxysmal atrial tachycardia S/P ablation
Former smoker, continued cessation recommended
Subjective:
Intubated and sedated on mechanical ventilation.
Physical Exam
Vital Signs/Labs
Vital Signs
Temp Pulse Resp BP Pulse Ox
98.1 F 84 17 119/83 95
05/15/23 10:00 05/15/23 12:30 05/15/23 12:30 05/15/23 12:00 05/15/23 12:30
05/14/23 05/15/23 05/16/23
06:59 06:59 06:59
Actual Weight 180 lb 12.465 oz 191 lb 12.835 oz
05/15/23 03:13
05/15/23 03:13
PT 19.7 Sec (11.4-14.6) H 05/14/23 13:23
INR 1.68 05/14/23 13:23
APTT 38.4 Sec (23.4-35.0) H 05/14/23 13:23
Magnesium 2.2 mg/dl (1.6-2.3) 05/15/23 03:13
Physical Exam
Constitutional: No acute distress and Comfortable
EENT: Anicteric
Cardiovascular: Rhythm & rate is regular and Systolic murmur absent
Respiratory: Respiratory effort normal, Wheeze Absent, Crackles Absent and Rhonchi Present
GI: Soft and Non tender
Neuro/Psych: AO x 3 and Motor deficits absent
Data Reviewed
-
Date of Service: May 15, 2023
[2023-05-15] MEDS: NSS IV (13:23)
[2023-05-15 14:09] LABS: Glucose - Point of Care 102 mg/dl (70-99)
[2023-05-15] MEDS: NEURONTIN 100 MG PO ×2 (15:15→22:13)
--- NOTE | 2023-05-15 16:00 | PTCARENOTE ---
pt VSS, no changes in assessment. insulin gtt dc'd as ordered. IS encouraged.
[2023-05-15] MEDS: TYLENOL 1000 MG PO (17:05)
[2023-05-15 17:30] LABS: Glucose - Point of Care 138 mg/dl (70-99)
--- NOTE | 2023-05-15 17:35 | PTCARENOTE ---
pt ambulated w/ 2 person assist into the hallway, placed back in chair for dinner. pt c/o nausea/lightheadedness. SBP 120s, BS 138, PRN Reglan given. SCALLOP RAKER aware. pt states +flatus.
[2023-05-15] MEDS: FLEXERIL 5 MG PO (20:19)
--- NOTE | 2023-05-15 21:40 | PTCARENOTE ---
Assumed care of patient at 1900. Patient found OOB in chair at time of assessment. Patient is AOx4, follows commands appropriately, moves all extremities. Lung sounds are diminished throughout, remains on 2L via NC saO2 at 94%, CTx2 located in the
mediastinum draining red sanguineous to single atrium. Heart sounds have a regular rate and rhythm, patient is SR on the monitor, normal palpable pulses, and +1 generalized anasarca. Active BS throuhgout all four quadrants, patient has not had
postop BM but is passing flatus. There is a carey in place draining clear yellow urine with good UOP. Patient has a R IJ cordis receiving KVO, and a R/L arm PIV for intermittent infusion. There is a sternal incision with aquacell dressing that is
CDI, an ABD dressing over CT wounds that is CDI, a tegaderm dressing located over R groin stopper, and some light purple ecchymosis over discontinued L wrist A line site. VSS. Patient has no complaints at this time.
[2023-05-15] MEDS: VITAMIN D3 (cholecalciferol) 50 MCG PO (22:13)
[2023-05-15 23:10] LABS: Glucose - Point of Care 116 mg/dl (70-99)
[2023-05-16] VITALS (11 sets, daily range): BP systolic 112–129; BP diastolic 73–88; PULSE 71; O2SAT 98; BMI 25.9
--- NOTE | 2023-05-16 | PTCARENOTE ---
Patient reassessed. VSS. Patient received skelaxinx1 HS. No c/o pain since then. Remains in SR on the monitor. Patient is stable.
[2023-05-16] MEDS: TYLENOL PO (01:04)
[2023-05-16] MEDS: ROXICODONE 10 MG PO ×3 (03:26→14:46)
--- NOTE | 2023-05-16 03:53 | W.PN.CT ---
Today's Communication / Plan
-
Plan:
-No major issues overnight. Hemodynamically and neurologically intact
-No ectopies overnight. Tolerating Lopressor and Amiodarone
-Cont. current meds (ASA, Amiodarone, Lopressor, Lasix, Finasteride)
-Consider D/C of chest tubes: 2meds 80/295
-D/C carey catheter, hematuria has resolved, got a dose of finasteride
-Maintain cordis another day
-Hyponatremia 134, consider Lasix, wt up 11 lbs from preop
-Maintain temporary pacer wires (will cut before d/c home)
-Encourage use of IS
-Wean off of O2
-OOB into chair
-Ambulate
Assessment / Plan
-
Assessment:
-S/p Reoperative sternotomy with standard aortic and right femoral vein cannulation/Ascending Aorta and Aortic root replacement with a 29 mm valve conduit/Patch repair of right atrium using [place] pericardium/ Extensive adhesiolysis, by Dr. Garcia,
05/14/23, pod#2
-Severe AI
-Dilated Asc./thoracic aorta (4.2 cm)
-A-fib/flutter S/P ablation, 07/08/21
-Mild to moderate MR
-Mild TR
-LVEF 50% postop per intraop DAHIANA
-Hx of severe MR S/p R minithoracotomy with MV Repair (38 mm annuloplasty ring with [place]-Ventura cords to A2 scallop), 04/11/[address] Dawkins
-SOL (uses CPAP)
-Former tobacco use (quit 11 years ago)
-Lung nodule
-BPH (on Finasteride)
-Perforated diverticulitis S/P Laparoscopic sigmoid resection with creation of Luke pouch, 04/13/16
-S/P Colostomy reversal, 08/04/16
-Acute postop blood loss/anemia (stable with transfusion of PRBCs)
-Acute postop thrombocytopenia (transfused 3 {5pks} plts, was given intraop)
-Acute postop atelectasis/pleural effusion
-Acute postop hypovolemia with subsequent hypervolemia
-Acute postop sinus bradycardia 50's S/p temporary pacer dependent (AV paced @ 80 bpm)
-Acute postop hematuria (resolved on 05/15)
-Acute postop NSVT
-Acute postop hyponatremia, 134
Discussed patient care with: Cardiology, Nursing, Respiratory Therapy, Pharmacy and Care Team
Subjective
Procedure
S/p Reoperative sternotomy with standard aortic and right femoral vein cannulation/Ascending Aorta and Aortic root replacement with a 29 mm valve conduit/Patch repair of right atrium using [place] pericardium/ Extensive adhesiolysis, by Dr. Garcia,
05/14/23
-
Date of Service: May 16, 2023
Pt c/o mild incisional/pleuritic chest pain, otherwise feel well
Objective Data
-
PT 19.7 Sec (11.4-14.6) H 05/14/23 13:23
INR 1.68 05/14/23 13:23
APTT 38.4 Sec (23.4-35.0) H 05/14/23 13:23
Vital Signs
Vital Signs
Temp Pulse Resp BP Pulse Ox
98.1 F 63 20 113/83 97
05/15/23 23:15 05/15/23 23:15 05/15/23 23:15 05/15/23 23:15 05/15/23 23:15
CT Intake/Output/Weight
05/15/23 05/15/23 05/16/23
06:59 18:59 06:59
Intake Total 1036.4 / 2262.4 515.2 / 585.2 70 / 585.2
Output Total 800 / 1410 910 / 1440 530 / 1440
Balance 236.4 / 852.4 -394.8 / -854.8 -460 / -854.8
SaO2: 97 (2L)
Physical Exam
-
General: Awake, Oriented and AOx3
Cardiovascular: Regular rate & rhythm, No Murmurs, No Rub and No Gallop
Respiratory: Decreased Breath Sounds
Sternum: Stable
Incision: Clean, Dry, Intact and Dressing Intact
Extremities: No Edema
Data Reviewed
-
Lab Results: Results Reviewed
Medications: Active Meds Reviewed
Chest X-Ray: Report Reviewed and Image Reviewed
ECG: Report Reviewed and Image Reviewed
[2023-05-16 04:19] LABS: Hematocrit 28.8 % (39.0-52.0); Hemoglobin 10.6 g/dL (13.0-18.0); Mean Corp Hgb Conc. 36.8 g/dL (33.0-37.0); Mean Corpuscular Hgb 31.5 pg (27.0-31.0); Mean Corpuscular Volume 85.5 fL (80.0-94.0); Mean Platelet Volume 11.1 fL (7.4-10.4); Platelet Count 126 10^3/uL (130-400); Red Blood Cell Count 3.37 10^6/uL (4.70-6.10); Red Cell Dist. Width 13.7 % (11.5-14.5); White Blood Cell Count 11.5 10^3/uL (4.8-10.8)
[2023-05-16 04:38] LABS: Blood Urea Nitrogen 17 mg/dl (9-20); Calcium 8.6 mg/dl (8.4-10.2); Carbon Dioxide 30 mmol/L (22-30); Chloride 103 mmol/L (98-107); Estimated Creatinine Clearance > 125 ml/min; Glucose 121 mg/dl (70-99); Sodium 134 mmol/L (135-145); eGFR > 60.00
[2023-05-16] MEDS: TYLENOL 1000 MG PO ×3 (06:15→18:22)
--- NOTE | 2023-05-16 07:38 | PTCARENOTE ---
Patient reassessed. VSS. Some PVCs noted around 0330 CT PA aware. Still in SR with first deg AV block. Patient assisted OOB to chair. C/o pain administered bunny 10x1.
--- NOTE | 2023-05-16 07:57 | PTCARENOTE ---
Assumed care of patient from shift supervisor RN. AAO x3 sitting up in the chair. C/o sternal/back discomfort. SR 60's on monitor. Epicardial wires insulated at present. Chest tubes to -20 cm suction. No air leak or crepitus noted. Abdomen with
bowel sounds noted t/o. States he is passing some flatus. Lowe draining clear yellow urine. Surgical sites well approximated and scabbed, surgical glue intact on sternum. Plus one general anasarca noted. Pulses palpable. Plan discussed for
day with team.
[2023-05-16] MEDS: BACTROBAN 2% OINTMENT 1 APPLIC NASAL ×2 (08:03→20:30)
[2023-05-16] MEDS: PROSCAR 5 MG PO (08:04)
[2023-05-16] MEDS: FLEXERIL 5 MG PO (08:04)
[2023-05-16] MEDS: LOW STRENGTH ASPIRIN 81 MG PO (08:04)
[2023-05-16] MEDS: NEURONTIN 100 MG PO ×3 (08:04→20:29)
[2023-05-16] MEDS: VITAMIN B-12 1000 MCG PO (08:04)
[2023-05-16] MEDS: PROTONIX 40 MG PO (08:04)
[2023-05-16] MEDS: SENOKOT-S 1 TABLET PO ×2 (08:04→20:29)
[2023-05-16] MEDS: PACERONE 200 MG PO ×3 (08:04→20:29)
[2023-05-16] MEDS: THERAGRAN 1 TABLET PO (08:04)
[2023-05-16] MEDS: LOPRESSOR 12.5 MG PO ×2 (08:05→20:29)
--- NOTE | 2023-05-16 08:23 | W.PN.CD ---
Today's Communication / Plan
-
Routine post operative management.
Chest tubes per CTS.
Encourage incentive spirometry and ambulation to assist with autodiuresis.
He may benefit from a single dose of furosemide.
Impression / Plan
-
Impression/Plan: 62M with �previous mitral valve repair via right minithoracotomy (38 mm ring annuloplasty with [place]-Ventura cords placed to the A2 scallop, 2016), now with symptomatic (stage D) AI admitted for aortic root replacement (+/- MVR).
#Severe aortic insufficiency
-S/P reoperative sternotomy with ascending aorta and root replacement with a #29 mm valve conduit & patch repair of right atrium (05/14/2023, Dr. Garcia).
-Routine post operative management per CTS.
-Dobutamine need post op, now off.
-Chest tube management by CTS.
-Continue amiodarone, aspirin, metoprolol
-Encourage ambulation, incentive spirometry (to assist with autodiuresis.
-He may benefit from furosemide 40 mg IV x1.
#Acute blood loss anemia
-R/T cardiac surgery.
-S/P platelet x 3 in OR.
-Hbg stable.
-Platelets recovering.
#WCT
-Acute.
-Approx 15 beats at 165.
-[place] due to R and T from pacer spike. Pacer disconnected at that time and no recurrence.
-Continue amiodarone and monitor.
#Mitral regurgitation S/P MV repair (2017)
-Mild to moderate regurgitation,
#Paroxysmal atrial fibrillation
-S/P ablation, 06/2021.
-Currently in NSR.
-LAAL could not be completed due to significant cardiac adhesions.
-[id number] = 0.
-Oral Anticoagulation: None.
#Perforated sigmoid diverticulitis w/ feculent peritonitis S/P Luke's procedure (2016) & subsequent reversal of colostomy
#Former smoker, continued cessation recommended
Subjective:
Extubated yesterday.
Weight 85.2 kg (down from 87 kg yesterday but remains up from 82 kg at admission).
SaO2 96% on 2LNC.
Primary Wet Silk Hanger: Dr. Cesar Rivera
DATA:
Cardiac Catheterization, 04/23/2023:
CONCLUSIONS:
1.� Severe, symptomatic aortic insufficiency.
2.� No angiographic evidence of coronary artery disease.
3.� Moderately elevated wedge and left ventricular end-diastolic pressure with otherwise normal right and left heart catheterization pressures.
DAHIANA, 04/23/2023:
CONCLUSIONS
�Low normal to mildly reduced left ventricular function with estimated ejection
�fraction 50 to 55%
�Severe eccentric aortic regurgitation
�Mitral valve is postrepair with mild mitral regurgitation
�Mild tricuspid regurgitation.
�Dilated aortic root
Physical Exam
Vital Signs/Labs
Vital Signs
Temp Pulse Resp BP Pulse Ox
36.8 C 70 16 121/83 96
05/16/23 07:55 05/16/23 08:00 05/16/23 07:55 05/16/23 07:46 05/16/23 07:55
05/14/23 05/15/23 05/16/23
11:59 11:59 11:59
Actual Weight 82 kg 87 kg 85.2 kg
05/16/23 04:02
05/16/23 04:02
PT 19.7 Sec (11.4-14.6) H 05/14/23 13:23
INR 1.68 05/14/23 13:23
APTT 38.4 Sec (23.4-35.0) H 05/14/23 13:23
Magnesium 2.0 mg/dl (1.6-2.3) 05/16/23 04:02
Physical Exam
Constitutional: No acute distress and Comfortable
EENT: Anicteric and Moist mucous membranes
Cardiovascular: Rhythm & rate is regular, Pedal edema is absent, JVD pressure is normal, S1S2 is normal and Murmur/rub/gallop absent
Respiratory: Respiratory effort normal, Lungs clear to auscul., Wheeze Absent, Crackles Absent and Rhonchi Absent
GI: Soft, Distention absent, Flat, Non tender and Normal bowel sounds
Neuro/Psych: AO x 3
Data Reviewed
-
Date of Service: May 16, 2023
Medical Decision Making: Reviewed Test Results, Independent Historian Assessment and Test Interpretation
EKG: Tracing Personally Visualized and interpreted and Report Reviewed by me
Echo: Tracing Personally Visualized and interpreted and Report Reviewed by me
X-Ray/CT/US/MRI/NUC/PET: Image Personally Visualized and interpreted and Report Reviewed by me
Medical Tests (PFT, Pathology etc): Image Personally Visualized and interpreted and Report Reviewed by me
Labs: Labs Reviewed by me
--- NOTE | 2023-05-16 08:30 | PTCARENOTE ---
Lowe catheter removed . Pt tolerated w/o issue. Urinal provided.
--- NOTE | 2023-05-16 08:45 | CARDSERVLU ---
Echocardiogram with Lumason completed after protocol screening completed. Allergies verified.
Patent IV site: _L FA____
IV site flushed with 0.9% NaCl pre and post administration.
Diluted bolus method utilized to enhance visualization of ventricular prescott.
Total volume given: _4.5___ mL
Patient tolerated all procedures well without complications.
[2023-05-16] MEDS: LASIX 40 MG IV (09:32)
[2023-05-16] MEDS: KCL 20 MEQ PO (09:33)
[2023-05-16] MEDS: MAGNESIUM OXIDE 500 MG PO ×2 (09:33→20:29)
--- NOTE | 2023-05-16 10:14 | PTCARENOTE ---
Chest tubes removed as per md order. Pt tolerated w/o issue. Able to void in urinal with standing, pink tinged with small clot noted, pt denied difficulty with urination. Will monitor.
[2023-05-16] MEDS: LIDOCAINE 4% PATCH TOPICAL (10:56)
--- NOTE | 2023-05-16 12:13 | PTCARENOTE ---
Ambulating in room at [facility]. Pain well managed at present. VSS, Assessment unchanged from prior.
[2023-05-16] MEDS: LIDOCAINE 4% PATCH 1 PATCH TOPICAL (14:39)
[2023-05-16] MEDS: NSS 500 IV (14:46)
--- NOTE | 2023-05-16 15:41 | PTCARENOTE ---
Assumed care of patient. Vital signs stable. NSR. HR 70s. BP 117/77. RA. Oxygen saturation 87% - 2L NC provided and oxygen saturation 90%. Patient c/o 8/10 sternal incision pain, administered PRN Roxicodone as ordered. Patient ambulated in hallway
with RN. Will take a nap prior to dinner.
--- NOTE | 2023-05-16 20:00 | PTCARENOTE ---
assumed care of patient @ 1900. received pt sitting in chair, AOX3. VSS on 2L NC. ambulated in hallway with at change of shift. NSR on monitor, +pulses +1 generalized edema. V wire insulated. Lungs diminished throughout. pulling about 1000 on
IS. +BS, no BM yet. Voiding clear yellow urine in urinal. Sternal inscision CDI [place], CT dressings CDI. R IJ cordis with kvo, PIV R and L arms patent. call willis within reach
[2023-05-16] MEDS: VITAMIN D3 (cholecalciferol) 50 MCG PO (20:29)
[2023-05-16] MEDS: ROXICODONE 5 MG PO (20:32)
[2023-05-17] VITALS (13 sets, daily range): BP systolic 92–121; BP diastolic 65–91; PULSE 93; O2SAT 96; BMI 25.6
--- NOTE | 2023-05-17 | PTCARENOTE ---
no change in assessment, pt resting comfortably with call willis within reach
[2023-05-17] MEDS: TYLENOL 1000 MG PO ×4 (00:41→18:05)
[2023-05-17] MEDS: ROXICODONE 5 MG PO (00:42)
[2023-05-17 04:08] LABS: Hematocrit 28.8 % (39.0-52.0); Hemoglobin 10.4 g/dL (13.0-18.0); Mean Corp Hgb Conc. 36.1 g/dL (33.0-37.0); Mean Corpuscular Hgb 30.9 pg (27.0-31.0); Mean Corpuscular Volume 85.5 fL (80.0-94.0); Platelet Count 138 10^3/uL (130-400); Red Blood Cell Count 3.37 10^6/uL (4.70-6.10); Red Cell Dist. Width 13.4 % (11.5-14.5); White Blood Cell Count 14.2 10^3/uL (4.8-10.8)
[2023-05-17 04:34] LABS: Blood Urea Nitrogen 19 mg/dl (9-20); Calcium 8.6 mg/dl (8.4-10.2); Carbon Dioxide 32 mmol/L (22-30); Chloride 98 mmol/L (98-107); Estimated Creatinine Clearance 115 ml/min; Glucose 126 mg/dl (70-99); Potassium 4.1 mmol/L (3.5-5.1); Sodium 134 mmol/L (135-145); eGFR > 60.00
--- NOTE | 2023-05-17 05:18 | W.PN.CT ---
Today's Communication / Plan
-
-pod #3
-no issues overnight
-diuresed well with 40 iv Lasix on 05/15 (UO 700/3550 in 12/24 hrs)
-Echo 05/15: EF 40%, normal functioning AV, mild-mod MR
-tiny R apical ptx on CXR 05/15 - follow
-current meds (ASA, Lopressor, Amio, Lasix)
-encourage IS, OOB
Assessment / Plan
-
Assessment:
-S/p Reoperative sternotomy with standard aortic and right femoral vein cannulation/Ascending Aorta and Aortic root replacement with a 29 mm valve conduit/Patch repair of right atrium using burns paiute pericardium/ Extensive adhesiolysis, by Dr. Garcia,
05/14/23, pod#3
-Severe AI
-Dilated Asc./thoracic aorta (4.2 cm)
-A-fib/flutter S/P ablation, 07/08/21
-Mild to moderate MR
-Mild TR
-LVEF 50% postop per intraop DAHIANA
-Hx of severe MR S/p R minithoracotomy with MV Repair (38 mm annuloplasty ring with [place]-Ventura cords to A2 scallop), 04/11/[address] Dawkins
-SOL (uses CPAP)
-Former tobacco use (quit 11 years ago)
-Lung nodule
-BPH (on Finasteride)
-Perforated diverticulitis S/P Laparoscopic sigmoid resection with creation of Luke pouch, 04/13/16
-S/P Colostomy reversal, 08/04/16
-Acute postop blood loss/anemia (stable with transfusion of PRBCs)
-Acute postop thrombocytopenia (transfused 3 {5pks} plts, was given intraop)
-Acute postop atelectasis/pleural effusion
-Acute postop hypovolemia with subsequent hypervolemia
-Acute postop sinus bradycardia 50's S/p temporary pacer dependent (AV paced @ 80 bpm)
-Acute postop hematuria (resolved on 05/15)
-Acute postop NSVT
-Acute postop hyponatremia, 134
-Acute postop tiny 5% R apical PTX
Echo postop 05/15:
Contrast used. Technically difficult post op study.
�
�Moderately reduced left ventricular systolic function. Left ventricular
�ejection fraction is 40%.
�Abnormal (paradoxical) septal motion consistent with postoperative status.
�History of mitral valve repair. Peak gradient 10mmHg/Mean gradient 3mmHg.
�Mild/moderate mitral regurgitation.
�s/p 29mm aortic valve conduit - Normally functioning. Peak gradient 11mmHg/Mean gradient 7mmHg. No aortic regurgitation.
�
�Compared to TTE 03/19/23: EF was 60% at that time.
�Compared to DAHIANA 05/14/23: EF was 45-50% at that time.
�
Discussed patient care with: Nursing and Care Team
Subjective
Procedure
S/p Reoperative sternotomy with standard aortic and right femoral vein cannulation/Ascending Aorta and Aortic root replacement with a 29 mm valve conduit/Patch repair of right atrium using burns paiute pericardium/ Extensive adhesiolysis, by Dr. Garcia,
05/14/23
-
Date of Service: May 17, 2023
Objective Data
-
PT 19.7 Sec (11.4-14.6) H 05/14/23 13:23
INR 1.68 05/14/23 13:23
APTT 38.4 Sec (23.4-35.0) H 05/14/23 13:23
Vital Signs
Vital Signs
Temp Pulse Resp BP Pulse Ox
97.7 F 72 16 122/78 92
05/17/23 00:00 05/17/23 00:00 05/17/23 00:00 05/16/23 23:59 05/17/23 00:00
CT Intake/Output/Weight
05/16/23 05/16/23 05/17/23
06:59 18:59 06:59
Intake Total 120 / 635.2 980 / 1460 480 / 1460
Output Total 1035 / 1945 2850 / 3550 700 / 3550
Balance -915 / -1309.8 -1869 / -2089 -220 / -2089
SaO2: 92
Physical Exam
-
General: Awake, Oriented and AOx3
Cardiovascular: Regular rate & rhythm, 2/6 systolic murmur @ L lateral wall, No Rub and No Gallop
Respiratory: Decreased Breath Sounds
Sternum: Stable
Incision: Clean, Dry, Intact and Dressing Intact
Abdomen: soft, nontender, nondistended, + bowel sounds
Extremities: trace edema b/l, 2+ DPs b/l
Data Reviewed
-
Lab Results: Results Reviewed
Medications: Active Meds Reviewed
Chest X-Ray: Report Reviewed and Image Reviewed
ECG: Report Reviewed and Image Reviewed
--- NOTE | 2023-05-17 07:30 | PTCARENOTE ---
Assumed care of patient from night cleaner RN. AAO x3 sitting up in the chair. C/o pain but very hesitant to take narcotics as he is worried about constipation. Options discussed with patient. settled on flexeril and some Milk of magnesia this am
to start. SR on monitor. Epicardial wires insulated. Room air 92%. Using IS independently. Abdomen soft with active bowel sounds t/o. States passing flatus. Voiding w/o issue. Trace anasarca noted. Plan for day discussed.
[2023-05-17] MEDS: NEURONTIN 100 MG PO ×2 (07:52→15:41)
[2023-05-17] MEDS: MAGNESIUM OXIDE 500 MG PO ×2 (07:52→20:10)
[2023-05-17] MEDS: NSS IV (07:52)
[2023-05-17] MEDS: THERAGRAN 1 TABLET PO (07:52)
[2023-05-17] MEDS: LOW STRENGTH ASPIRIN 81 MG PO (07:52)
[2023-05-17] MEDS: VITAMIN B-12 1000 MCG PO (07:52)
[2023-05-17] MEDS: PROSCAR 5 MG PO (07:52)
[2023-05-17] MEDS: FLEXERIL 5 MG PO ×2 (07:52→20:10)
[2023-05-17] MEDS: BACTROBAN 2% OINTMENT 1 APPLIC NASAL ×2 (07:52→20:11)
[2023-05-17] MEDS: SENOKOT-S 1 TABLET PO ×2 (07:52→20:10)
[2023-05-17] MEDS: LOPRESSOR 12.5 MG PO (07:52)
[2023-05-17] MEDS: PACERONE 200 MG PO ×2 (07:52→15:41)
[2023-05-17] MEDS: PROTONIX 40 MG PO (07:52)
[2023-05-17] MEDS: MILK OF MAGNESIA 30 ML PO (07:56)
--- NOTE | 2023-05-17 08:21 | W.PN.CD ---
Today's Communication / Plan
-
OOB and ambulate
Continue routine post-op care
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
Impression / Plan
-
Impression/Plan: 62M with �previous mitral valve repair via right minithoracotomy (38 mm ring annuloplasty with [place]-Ventura cords placed to the A2 scallop, 2016), now with symptomatic (stage D) AI admitted for aortic root replacement (+/- MVR).
#Severe aortic insufficiency
-S/P reoperative sternotomy with ascending aorta and root replacement with a #29 mm valve conduit & patch repair of right atrium (05/14/2023, Dr. Garcia).
-Routine post operative management per CTS.
-Dobutamine need post op, now off.
-Chest tube management by CTS.
-Continue amiodarone, aspirin, metoprolol
-Encourage ambulation, incentive spirometry (to assist with autodiuresis.)
#Acute blood loss anemia
-R/T cardiac surgery.
-S/P platelet x 3 in OR.
-Hbg stable.
-Platelets recovering.
#WCT
-Acute.
-Approx 15 beats at 165.
-[place] due to R and T from pacer spike. Pacer disconnected at that time and no recurrence.
-Continue amiodarone and monitor.
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
- GDMT as tolerated consider Entresto and SGLT2i
#Mitral regurgitation S/P MV repair (2016)
-Mild to moderate regurgitation,
#Paroxysmal atrial fibrillation
-S/P ablation, 06/2021.
-Currently in NSR.
-LAAL could not be completed due to significant cardiac adhesions.
-[id number] = 0.
-Oral Anticoagulation: None.
#Perforated sigmoid diverticulitis w/ feculent peritonitis S/P Luke's procedure (2017) & subsequent reversal of colostomy
#Former smoker, continued cessation recommended
Subjective:
Extubated yesterday.
Weight 85.2 kg (down from 87 kg yesterday but remains up from 82 kg at admission).
SaO2 96% on 2LNC.
Primary Medical Technologist Clinical: Dr. Cesar Rivera
DATA:
TTE May 16, 2023
CONCLUSIONS
�Contrast used. Technically difficult post op study.
�
�Moderately reduced left ventricular systolic function. Left ventricular
�ejection fraction is 40%.
�Abnormal (paradoxical) septal motion consistent with postoperative status.
�History of mitral valve repair. Peak gradient 10mmHg/Mean gradient 3mmHg.
�Mild/moderate mitral regurgitation.
�s/p 29mm aortic valve conduit - Normally functioning. Peak gradient 11mmHg/Mean
�gradient 7mmHg. No aortic regurgitation.
�
�Compared to TTE 03/19/23: EF was 60% at that time.
�Compared to DAHIANA 05/14/23: EF was 45-50% at that time..
Cardiac Catheterization, 04/23/2023:
CONCLUSIONS:
1.� Severe, symptomatic aortic insufficiency.
2.� No angiographic evidence of coronary artery disease.
3.� Moderately elevated wedge and left ventricular end-diastolic pressure with otherwise normal right and left heart catheterization pressures.
DAHIANA, 04/23/2023:
CONCLUSIONS
�Low normal to mildly reduced left ventricular function with estimated ejection
�fraction 50 to 55%
�Severe eccentric aortic regurgitation
�Mitral valve is postrepair with mild mitral regurgitation
�Mild tricuspid regurgitation.
�Dilated aortic root
Physical Exam
Vital Signs/Labs
Vital Signs
Temp Pulse Resp BP Pulse Ox
99.2 F 94 14 107/73 92
05/17/23 08:00 05/17/23 08:00 05/17/23 08:00 05/17/23 07:46 03/07/24 08:00
05/16/23 05/17/23 05/18/23
06:59 06:59 06:59
Actual Weight 187 lb 13.341 oz 185 lb 6.54 oz
05/17/23 03:54
05/17/23 03:54
PT 19.7 Sec (11.4-14.6) H 05/14/23 13:23
INR 1.68 05/14/23 13:23
APTT 38.4 Sec (23.4-35.0) H 05/14/23 13:23
Magnesium 2.0 mg/dl (1.6-2.3) 05/16/23 04:02
Physical Exam
Constitutional: No acute distress
EENT: Anicteric
Cardiovascular: Rhythm & rate is regular and Pedal edema present (trace)
Respiratory: Respiratory effort normal and Lungs clear to auscul. (decrease b/s at the b/l bases )
GI: Soft
Neuro/Psych: AO x 3
Data Reviewed
-
Date of Service: May 17, 2023
EKG: Tracing Personally Visualized and interpreted
Echo: Report Reviewed by me
Labs: Labs Reviewed by me
[2023-05-17] MEDS: KCL 20 MEQ PO (08:29)
[2023-05-17] MEDS: LASIX 40 MG IV (08:30)
--- NOTE | 2023-05-17 11:48 | CM ---
CM following for DC planning needs.
Met w/ patient at bedside. Pt. states that he is feeling well.
Reviewed DC plan. Patient is out of geographical area for [facility] Transitional Care RN. Will need to refer to . Explained this to patient. He is agreeable to this.
Will submit referral to [facility] as patient has used them in the past (2017 post AVR).
Will follow.
--- NOTE | 2023-05-17 13:03 | PTCARENOTE ---
Resting in bed. Attempting to nap. VSS, assessment unchanged from prior. Diuresing well. Pain well managed.
--- NOTE | 2023-05-17 15:12 | PTCARENOTE ---
Ambulating in hallway with son. Denies SOB. Continues to feel Like he 'should have had a BM by now' Encouragement. Discussed with CT C[employer]ODU[employer] GLAZER, miralax ordered and administered will monitor for results. Pt denies pain. Appetite good, denies nausea.
Assessment otherwise unchanged from prior.
[2023-05-17] MEDS: FARXIGA 10 MG PO (15:40)
[2023-05-17] MEDS: MIRALAX 17 GRAMS PO (15:40)
[2023-05-17] MEDS: ENTRESTO 24 MG/26 MG 1 TAB PO (15:47)
[2023-05-17] MEDS: LOPRESSOR 5 MG IV (18:04)
[2023-05-17] MEDS: MAGNESIUM SULFATE 100 IV (18:12)
--- NOTE | 2023-05-17 18:19 | PTCARENOTE ---
Monitor alarming for Afib 80's, pt appears to be in A fib/flutter. Asymptomatic. EKG obtained to confirm. CT GAS INSPECTOR in to assess. IV metoprolol administered. BP dipped from 100's systolic down to 92/70. Pt c/o slight head ache. tylenol
administered. Will monitor
[2023-05-17] MEDS: LIDOCAINE 4% PATCH TOPICAL (18:53)
[2023-05-17] MEDS: ENTRESTO 24 MG/26 MG PO (19:07)
[2023-05-17] MEDS: CORDARONE 103 MG IV (20:05)
[2023-05-17] MEDS: CORDARONE 518 MG IV (20:05)
--- NOTE | 2023-05-17 23:09 | PTCARENOTE ---
assumed care of patient @ 1900. received pt laying in bed, AOX3. VSS. A fib on monitor. New IV #22 placed in R forearm for initiation of amio bolus and drip per orders. +pulses, AV wires connected to box for backup, box still turned off. Lungs
clear, diminished on room air. wears own cpap at night. +BS, passing gas, no BM yet. voiding clear yellow urine in urinal. All surgical incisions CDI. pt resting comfortably with call willis within reach.
[2023-05-18] MEDS: VITAMIN D3 (cholecalciferol) 50 MCG PO (00:01)
[2023-05-18] MEDS: NEURONTIN 100 MG PO ×3 (00:01→15:12)
[2023-05-18] MEDS: PACERONE 200 MG PO ×3 (00:02→15:11)
[2023-05-18] MEDS: LOPRESSOR 12.5 MG PO ×2 (00:02→08:39)
[2023-05-18] MEDS: TYLENOL 1000 MG PO ×2 (00:02→08:39)
--- NOTE | 2023-05-18 00:35 | PTCARENOTE ---
2230 - pt converted back into NSR. EKG completed which shows NSR with 1* AVB. ctpa notified
[2023-05-18 04:15] VITALS: BP 124/81
[2023-05-18 04:26] LABS: Hematocrit 29.4 % (39.0-52.0); Hemoglobin 10.7 g/dL (13.0-18.0); Mean Corp Hgb Conc. 36.4 g/dL (33.0-37.0); Mean Corpuscular Volume 85.2 fL (80.0-94.0); Platelet Count 159 10^3/uL (130-400); Red Blood Cell Count 3.45 10^6/uL (4.70-6.10); Red Cell Dist. Width 13.2 % (11.5-14.5); White Blood Cell Count 14.5 10^3/uL (4.8-10.8)
[2023-05-18 04:47] LABS: Blood Urea Nitrogen 14 mg/dl (9-20); Calcium 8.6 mg/dl (8.4-10.2); Carbon Dioxide 29 mmol/L (22-30); Chloride 100 mmol/L (98-107); Estimated Creatinine Clearance 115 ml/min; Glucose 122 mg/dl (70-99); Sodium 133 mmol/L (135-145); eGFR > 60.00
--- NOTE | 2023-05-18 05:45 | W.PN.CT ---
Today's Communication / Plan
-
-pod #4
-went into a-fib yesterday at approx 5 pm (felt flushed, denied feeling palpitations) - got iv Lopressor, Mag, Amio bolus and drip and converted to nsr around 10:30 pm (has hx a-fib with ablation)
-diuresing well with iv Lasix 3/ (UO 1500/3800+ in 12/24 hrs)
-follow 2v-CXR today
-current meds (ASA, Lopressor, Amio, Lasix)
-encourage IS, OOB, ambulate
-possible d/c soon
Assessment / Plan
-
Assessment:
-S/p Reoperative sternotomy with standard aortic and right femoral vein cannulation/Ascending Aorta and Aortic root replacement with a 29 mm valve conduit/Patch repair of right atrium using ruby pericardium/ Extensive adhesiolysis, by Dr. Garcia,
05/14/23, pod#4
-Severe AI
-Dilated Asc./thoracic aorta (4.2 cm)
-A-fib/flutter S/P ablation, 07/08/21
-Mild to moderate MR
-Mild TR
-LVEF 50% postop per intraop DAHIANA
-Hx of severe MR S/p R minithoracotomy with MV Repair (38 mm annuloplasty ring with Laurel-Ventura cords to A2 scallop), 04/11/[address] Dawkins
-SOL (uses CPAP)
-Former tobacco use (quit 11 years ago)
-Lung nodule
-BPH (on Finasteride)
-Perforated diverticulitis S/P Laparoscopic sigmoid resection with creation of Luke pouch, 04/13/16
-S/P Colostomy reversal, 08/04/16
-Acute postop blood loss/anemia (stable with transfusion of PRBCs)
-Acute postop thrombocytopenia (transfused 3 {5pks} plts, was given intraop)
-Acute postop atelectasis/pleural effusion
-Acute postop hypovolemia with subsequent hypervolemia
-Acute postop sinus bradycardia 50's S/p temporary pacer dependent (AV paced @ 80 bpm)
-Acute postop hematuria (resolved on 05/15)
-Acute postop NSVT
-Acute postop hyponatremia, 134
-Acute postop tiny 5% R apical PTX
-Acute postop a-fib on 05/16 - tx with 5 iv Lopressor, iv Mag, Amio bolus and drip- converted to nsr at 10:30 pm on 05/16 (approx 5.5 hrs)
Echo postop 05/15:
Contrast used. Technically difficult post op study.
�
�Moderately reduced left ventricular systolic function. Left ventricular ejection fraction is 40%.
�Abnormal (paradoxical) septal motion consistent with postoperative status.
�History of mitral valve repair. Peak gradient 10mmHg/Mean gradient 3mmHg.
�Mild/moderate mitral regurgitation.
�s/p 29mm aortic valve conduit - Normally functioning. Peak gradient 11mmHg/Mean gradient 7mmHg. No aortic regurgitation.
�
�Compared to TTE 03/19/23: EF was 60% at that time.
�Compared to DAHIANA 05/14/23: EF was 45-50% at that time.
�
Discussed patient care with: Nursing and Care Team
Subjective
Procedure
S/p Reoperative sternotomy with standard aortic and right femoral vein cannulation/Ascending Aorta and Aortic root replacement with a 29 mm valve conduit/Patch repair of right atrium using ruby pericardium/ Extensive adhesiolysis, by Dr. Garcia,
05/14/23
-
Date of Service: May 18, 2023
Objective Data
-
Lab Results
05/18/23 04:13
05/18/23 04:13
PT 19.7 Sec (11.4-14.6) H 05/14/23 13:23
INR 1.68 05/14/23 13:23
APTT 38.4 Sec (23.4-35.0) H 05/14/23 13:23
Vital Signs
Vital Signs
Temp Pulse Resp BP Pulse Ox
98.8 F 72 16 124/81 92
05/18/23 00:40 05/18/23 05:00 05/18/23 04:30 05/18/23 04:15 05/18/23 04:30
CT Intake/Output/Weight
05/17/23 05/17/23 05/18/23
06:59 18:59 06:59
Intake Total 480 / 1460 250 / 730 480 / 730
Output Total 1200 / 4050 2300 / 3800 1500 / 3800
Balance -720 / -2590 -2050 / -3070 -1020 / -3070
SaO2: 92
Physical Exam
-
General: Awake, Oriented and AOx3
Cardiovascular: Regular rate & rhythm
Respiratory: Decreased Breath Sounds
Sternum: Stable
Incision: Clean, Dry, Intact and Dressing Intact
Abdomen: soft, nontender, nondistended, + bowel sounds
Extremities: trace edema b/l, 2+ DPs b/l
Data Reviewed
-
Lab Results: Results Reviewed
Medications: Active Meds Reviewed
Chest X-Ray: Report Reviewed and Image Reviewed
ECG: Report Reviewed and Image Reviewed
[2023-05-18 07:01] VITALS: BMI 24.8
--- NOTE | 2023-05-18 07:02 | PTCARENOTE ---
IV Amio infiltrated, Infusion stopped. INT removed. Ice applied, and Vascular access team notified.
--- NOTE | 2023-05-18 07:03 | PTCARENOTE ---
Assumed care of patient from immigration guard RN. AAO x 3 . Assisted oob to chair. Weight obtained. SR on monitor. Epicardial wire connected to box. Room air . Abdomen soft and non tender. Voiding w/o issue. Pulses palpable. Plan for day
discussed.
[2023-05-18 08:37] VITALS: BP 128/87
[2023-05-18] MEDS: FLEXERIL 5 MG PO (08:38)
[2023-05-18] MEDS: PROTONIX 40 MG PO (08:39)
[2023-05-18] MEDS: SENOKOT-S 1 TABLET PO (08:39)
[2023-05-18] MEDS: THERAGRAN 1 TABLET PO (08:39)
[2023-05-18] MEDS: VITAMIN B-12 1000 MCG PO (08:39)
[2023-05-18] MEDS: FARXIGA 10 MG PO (08:39)
[2023-05-18] MEDS: ENTRESTO 24 MG/26 MG 1 TAB PO (08:39)
[2023-05-18] MEDS: MAGNESIUM OXIDE 500 MG PO (08:39)
[2023-05-18] MEDS: PROSCAR 5 MG PO (08:39)
[2023-05-18] MEDS: LOW STRENGTH ASPIRIN 81 MG PO (08:39)
[2023-05-18] MEDS: KCL PO (08:40)
[2023-05-18] MEDS: BACTROBAN 2% OINTMENT 1 APPLIC NASAL (08:40)
[2023-05-18] MEDS: LASIX IV (08:40)
[2023-05-18] MEDS: MIRALAX PO (08:40)
[2023-05-18 10:04] VITALS: BP 120/89
[2023-05-18 10:17] VITALS: BP 112/81
[2023-05-18 10:45] VITALS: BP 112/81; BP 120/89; PULSE 86; O2SAT 100; O2SAT 98
--- NOTE | 2023-05-18 11:36 | W.DCSUMMARY ---
Addendum entered and electronically signed by ENID Degroot 05/24/23 14:36:
CDI Query RESPONSE
Acute on chronic systolic CHF
Original Note:
Documented by User: Taniya ENID Bonner 05/18/23 14:29
Discharge Summary
Discharge Data
Date of Admission: 05/14/23
Date of Discharge: 05/18/23
-
Pending Results: No
Hospital Course
Primary care physician:
Dr. Carlos A Steel
Outpatient piano instructor:
Dr. Cesar Rivera
Inpatient consultants:
CBC, retail client solutions consultant
Procedures:
1. Ascending Aorta and Aortic root replacement with a 29 mm valve conduit
Primary Diagnosis:
1. 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
Secondary Diagnoses:
1.� History of open cardiac surgery, mitral valve repair
2.� Severe dilated cardiomyopathy with acute on chronic congestive heart failure secondary to her severe aortic valve insufficiency from primary leaflet pathology combination of leaflet pathology and dilated root aneurysm
3.� Diverticular disease status post sigmoidectomy for perforation and colostomy reversal
4.� Recurrent mitral valve insufficiency, mild to moderate
5.� Paroxysmal atrial tachycardia and atrial fibrillation status post ablation
6.� Obstructive sleep apnea
7.� Lung nodule
HPI: 62-year-old male with previous mitral valve repair via thoracotomy in 2017.� He had recurrent mitral valve insufficiency that was mild to moderate however more concerning that he had severe aortic valve insufficiency that seem to have worsened
over time.� His LV was also distended with an end-diastolic over end-systolic dimension of 7 cm over 5 cm.� His root was also dilated to approximately 5 cm on my review his annulus was significantly enlarged.� The mechanism of his aortic valve
insufficiency appeared to be from a combination of the root dilation as well as primary leaflet pathology and prolapse.� He had new onset symptoms of shortness of breath even with light activity and significant fatigue.� He met stage D
symptomatology and possible indication for intervention.
Hospital course: On 05/13, patient was electively admitted for a redo sternotomy AVR with Dr. Garcia. He returned to the CVICU on dobutamine, milrinone, levophed, precedex, and insulin infusions. He was given 3 albumins and was started on a lactated
ringers infusion. He was not given ASA immediately post-operatively because of bleeding intraoperatively. He was having increased PACs and was started on a amiodarone infusion. However, due to bradycardia it was later on discontinued. On 05/14
postoperative-day #1, patient was weaned off milrinone and dobutamine. Had a short nonsustained VT episode and was continued on beta-blockers and oral amiodarone. Due to the patient's history of bowel perforation he was kept on a liquid diet for
48 hours. Lowe catheter remained for urine output monitoring. On 3/6 postop day #2 patient's diet was advanced. Chest tubes and Lwoe catheter was removed. Patient was given 40 mg of IV Lasix and diuresed 2.6 L. On 3 postop day #3 right IJ
cordis was removed he was redosed with 40 mg of IV Lasix. He was started on Farxiga and and Entresto per cardiology. Right groin stitch was removed. He converted from normal sinus to atrial fibs/atrial flutter. He was given IV Lopressor,
magnesium repletion, and amio bolus and infusion. He converted into sinus rhythm after being in atrial fibrillation for about 2 hours. Patient's 2 view chest x-ray remained stable. Lopressor was uptitrated. Patient was deemed stable for
discharge.
Home medication changes:
See below
Discharge Plan
-
Patient Disposition: Home (Routine Discharge)
Discharge Diagnosis/Procedures: AVR
Condition: Good
Diet: No restrictions
Activity: No strenuous activity
Driving Restrictions: Not until seen by your Dr
Bathing Restrictions: OK to Shower
Blood Work: bmp in 5 days-script given as [facility] Home care following
Other Services: Cardiac Rehab
Specialty Instructions: Weigh Daily- Call MD for wt gain/loss 3 lbs overnight/5 lbs in 1 week
Activity Restrictions/Additional Instructions:
ACTIVITY:
-No strenuous activity: no heavy lifting, pushing, pulling anything over 15 pounds for one month
-continue to use stairs as tolerated
DRIVING RESTRICTIONS:
-No driving for one month or until approved by your surgeon
WOUND CARE:
-Shower daily. Use soap & water.
-No lotions, creams or powders on incision area.
DIET:
-continue a low fat/low cholesterol diet.
-IF you are diabetic, continue carb controlled diet.
CARDIAC REHAB:
-Please make appointment to start in 5-6 weeks with your local hospital program. (See Cardiac Rehabilitation Discharge Booklet).
SPECIALTY INSTRUCTIONS:
-Weigh yourself daily. Call your physician for any weight gain/loss of 3 lbs overnight or 5 lbs in one week.
-REPORT any clicking noise or uneven appearance of your sternum to your surgeon immediately.
-If you smoke, you are instructed to quit. The [place] smoking hotline phone number is [phone]
Referrals:
[facility] Visiting Nurse [Outside] - in one to two days (FAX: [phone])
Cesar Rivera MD [Active] - 06/25/23 9:00 am
Carlos A Steel, [Family Provider] -
Percy Garcia MD [Active] - 06/14/23 1:45 pm
Prescriptions:
New
cyclobenzaprine 10 mg Tablet
5 mg PO TID PRN (Reason: muscle spasm) Qty: 30 0RF
amiodarone [Pacerone] 200 mg Tablet
200 mg PO BID Qty: 60 0RF
Entresto 24-26 mg Tablet
1 tab PO BID Qty: 30 0RF
gabapentin 100 mg Capsule
100 mg PO TID Qty: 21 0RF
oxycodone 5 mg Tablet
5 mg PO Q4HPRN PRN (Reason: severe pain) Qty: 10 0RF
dapagliflozin propanediol [Farxiga] 10 mg Tablet
10 mg PO DAILY Qty: 30 0RF
amiodarone 200 mg tablet
200 mg PO DAILY Qty: 30 0RF
Rx Instructions:
start 30 days after discharge
furosemide [Lasix] 20 mg tablet
20 mg PO DAILY Qty: 7 0RF
Rx Instructions:
Take daily for 7 days, then stop
metoprolol succinate [Toprol XL] 50 mg tablet extended release 24 hr
50 mg PO DAILY Qty: 30 0RF
potassium chloride 10 mEq capsule, extended release
10 meq PO DAILY Qty: 7 0RF
Rx Instructions:
TAKE ONLY WHILE ON LASIX
Continued
ascorbic acid (vitamin C) [Vitamin C] 500 MG tablet
1,000 mg PO BID
acetaminophen [Tylenol Extra Strength] 500 MG tablet
1,000 mg PO Q6HPRN PRN (Reason: pain)
multivitamin Tablet
1 tab PO DAILY
aspirin 81 mg Tablet,Delayed Release (Dr/Ec)
81 mg PO HS
cholecalciferol (vitamin D3) [Vitamin D3] 50 mcg (2,000 unit) Capsule
50 mcg PO HS
Vitamin B-12
1 tab PO DAILY
albuterol sulfate [ProAir HFA] 90 mcg/actuation Hfa Aerosol Inhaler
2 puff INHALATION 6XD PRN (Reason: SOB)
finasteride 5 mg Tablet
5 mg PO QPM
tadalafil 5 mg Tablet
5 mg PO QPM
Vicki
1 dose PO DAILY
Rx Instructions:
bowel health
Held
co Q10-red yeast rice 25-600 mg Capsule
2 cap PO HS
Hold Instructions: Resume on 06/25/23.
Discontinued
Fish Oil
1 cap PO QPM
ibuprofen 200 mg Tablet
200 mg PO Q6H PRN (Reason: pain)
Discharge Orders:
Discharge Patient (As Directed); Ordered 05/18/23
Ordered By: Taniya Bonner
Care Plan Goals
Care Plan Goals:
Problem: Readiness for enhanced knowledge related to diagnosis and treatment plan
Goal: Understand your diagnosis and treatment plan needs, including medications if applicable.
Instructions: Know your diagnosis, underlying causes and treatment plan options, including medications if applicable. Consult with your health care team to learn about your diagnosis and treatment plan, including medications if applicable.
Discharge Date and Time
Discharge Date/Time: 05/18/23 17:49

Documented by User: ENID Degroot 05/18/23 18:10
Discharge Summary
Discharge Data
Date of Admission: 05/14/23
Date of Discharge: 05/18/23
Discharge Plan
-
Patient Disposition: Home (Routine Discharge)
Discharge Diagnosis/Procedures: AVR
Condition: Good
Diet: No restrictions
Activity: No strenuous activity
Driving Restrictions: Not until seen by your Dr
Bathing Restrictions: OK to Shower
Blood Work: bmp in 5 days-script given as [facility] care following
Other Services: Cardiac Rehab
Specialty Instructions: Weigh Daily- Call MD for wt gain/loss 3 lbs overnight/5 lbs in 1 week
Activity Restrictions/Additional Instructions:
ACTIVITY:
-No strenuous activity: no heavy lifting, pushing, pulling anything over 15 pounds for one month
-continue to use stairs as tolerated
DRIVING RESTRICTIONS:
-No driving for one month or until approved by your surgeon
WOUND CARE:
-Shower daily. Use soap & water.
-No lotions, creams or powders on incision area.
DIET:
-continue a low fat/low cholesterol diet.
-IF you are diabetic, continue carb controlled diet.
CARDIAC REHAB:
-Please make appointment to start in 5-6 weeks with your local hospital program. (See Cardiac Rehabilitation Discharge Booklet).
SPECIALTY INSTRUCTIONS:
-Weigh yourself daily. Call your physician for any weight gain/loss of 3 lbs overnight or 5 lbs in one week.
-REPORT any clicking noise or uneven appearance of your sternum to your surgeon immediately.
-If you smoke, you are instructed to quit. The [place] smoking hotline phone number is [phone]
Referrals:
[facility] Visiting Nurse [Outside] - in one to two days (FAX: [phone])
Cesar Rivera MD [Active] - 06/25/23 9:00 am
Carlos A Steel, [Family Provider] -
Percy Garcia MD [Active] - 06/14/23 1:45 pm
Prescriptions:
New
cyclobenzaprine 10 mg Tablet
5 mg PO TID PRN (Reason: muscle spasm) Qty: 30 0RF
amiodarone [Pacerone] 200 mg Tablet
200 mg PO BID Qty: 60 0RF
Entresto 24-26 mg Tablet
1 tab PO BID Qty: 30 0RF
gabapentin 100 mg Capsule
100 mg PO TID Qty: 21 0RF
oxycodone 5 mg Tablet
5 mg PO Q4HPRN PRN (Reason: severe pain) Qty: 10 0RF
dapagliflozin propanediol [Farxiga] 10 mg Tablet
10 mg PO DAILY Qty: 30 0RF
amiodarone 200 mg tablet
200 mg PO DAILY Qty: 30 0RF
Rx Instructions:
start 30 days after discharge
furosemide [Lasix] 20 mg tablet
20 mg PO DAILY Qty: 7 0RF
Rx Instructions:
Take daily for 7 days, then stop
metoprolol succinate [Toprol XL] 50 mg tablet extended release 24 hr
50 mg PO DAILY Qty: 30 0RF
potassium chloride 10 mEq capsule, extended release
10 meq PO DAILY Qty: 7 0RF
Rx Instructions:
TAKE ONLY WHILE ON LASIX
Continued
ascorbic acid (vitamin C) [Vitamin C] 500 MG tablet
1,000 mg PO BID
acetaminophen [Tylenol Extra Strength] 500 MG tablet
1,000 mg PO Q6HPRN PRN (Reason: pain)
multivitamin Tablet
1 tab PO DAILY
aspirin 81 mg Tablet,Delayed Release (Dr/Ec)
81 mg PO HS
cholecalciferol (vitamin D3) [Vitamin D3] 50 mcg (2,000 unit) Capsule
50 mcg PO HS
Vitamin B-12
1 tab PO DAILY
albuterol sulfate [ProAir HFA] 90 mcg/actuation Hfa Aerosol Inhaler
2 puff INHALATION 6XD PRN (Reason: SOB)
finasteride 5 mg Tablet
5 mg PO QPM
tadalafil 5 mg Tablet
5 mg PO QPM
Vicki
1 dose PO DAILY
Rx Instructions:
bowel health
Held
co Q10-red yeast rice 25-600 mg Capsule
2 cap PO HS
Hold Instructions: Resume on 06/25/23.
Discontinued
Fish Oil
1 cap PO QPM
ibuprofen 200 mg Tablet
200 mg PO Q6H PRN (Reason: pain)
Discharge Orders:
Discharge Patient (As Directed); Ordered 05/18/23
Ordered By: Taniya Bonner
Care Plan Goals
Care Plan Goals:
Problem: Readiness for enhanced knowledge related to diagnosis and treatment plan
Goal: Understand your diagnosis and treatment plan needs, including medications if applicable.
Instructions: Know your diagnosis, underlying causes and treatment plan options, including medications if applicable. Consult with your health care team to learn about your diagnosis and treatment plan, including medications if applicable.
Discharge Date and Time
Discharge Date/Time: 05/18/23 17:49
[2023-05-18] MEDS: LIDOCAINE 4% PATCH TOPICAL (13:56)
[2023-05-18] MEDS: TYLENOL PO (13:57)
[2023-05-18] MEDS: NSS IV (13:57)
[2023-05-18] MEDS: TOPROL XL 25 MG PO (13:58)
--- NOTE | 2023-05-18 14:45 | PTCARENOTE ---
Epicardial wires cut and retracted by RN and SASH REPAIRER. Pt then in to bathroom to shower. Tolerated without issue.. Dressed in own clothes after. Resting in bed, waiting on for discharge
[2023-05-18 15:08] VITALS: BP 112/83
--- NOTE | 2023-05-18 15:10 | CM ---
CM following for DC planning needs.
Met w/ patient at bedside. He is expecting DC today, feels well.
Reviewed DC plan for home w/ RN ([facility] RN is out of patient's geographical area). Referral made to Angela/hetal. I relayed this to patient.
Plan is for home w/ [facility].
No other DC needs identified.
--- NOTE | 2023-05-18 17:49 | PTCARENOTE ---
Discharge instructions reviewed with patient and . Questions answered. INTs and cardiac monitor removed. Wheeled to car by RN.
--- NOTE | 2023-05-21 13:28 | PN.CDI ---
CDI
- -
CDI:
Physician Documentation Request
Admit Date: 05/14/23 04:53
Dear Maria Guadalupe ROSSI,
Patient admitted with aortic root aneurysm with severe aortic valve insufficiency s/p ascending aorta and aortic root replacement with a 29 [address]
CT note,'Echo postop 05/15:�Moderately reduced left ventricular systolic function. Left ventricular ejection fraction is 40%.
Discharge Summary, 'Severe dilated cardiomyopathy with acute on chronic congestive heart failure secondary to her severe aortic valve......'
Please provide in your note the type of documented acute on chronic congestive heart failure:
Acute on chronic systolic CHF
Acute on chronic diastolic CHF
Other
Use of terms such as suspected, likely, concern for, or probable (associated with a specific diagnosis that is being evaluated, monitored, or treated as if it exists) are acceptable and can be coded in the inpatient setting, when documented at the
time of discharge.
Thank you,
Liza PATEL,RN,CCDS
CDI Specialist
Available via tiger text
Please use your independent medical judgment in providing your response.
== END 2023-05-18 17:49 | disposition home health service (06) | DRG 219 ==
LOC: CVICU 04:53
PROVIDERS: Clinical Nurse Specialist Acute Care; Nurse Practitioner; ADMITTING PHYSICIAN Thoracic Surgery (Cardiothoracic Vascular Surgery); CONSULT PHYSICIAN Internal Medicine; FAMILY PHYSICIAN Family Medicine
PROC: 02NN0ZZ Release Pericardium, Open Approach (ICD-10-PCS; 2023-05-14)
PROC: B24BZZ4 Ultrasonography of Heart with Aorta, Transesophageal (ICD-10-PCS; 2023-05-14)
PROC: 5A1221Z Performance of Cardiac Output, Continuous (ICD-10-PCS; 2023-05-14)
PROC: 02RX0JZ Replacement of Thoracic Aorta, Ascending/Arch with Synthetic Substitute, Open Approach (ICD-10-PCS; 2023-05-14)
PROC: 5A09357 Assistance with Respiratory Ventilation, Less than 24 Consecutive Hours, Continuous Positive Airway Pressure (ICD-10-PCS; 2023-05-14)
PROC: 30233R1 Transfusion of Nonautologous Platelets into Peripheral Vein, Percutaneous Approach (ICD-10-PCS; 2023-05-14)
DX: Q25.43 Congenital aneurysm of aorta (principal); I49.01 Ventricular fibrillation; I50.23 Acute on chronic systolic (congestive) heart failure; I31.0 Chronic adhesive pericarditis; I42.0 Dilated cardiomyopathy; D62 Acute posthemorrhagic anemia; J98.11 Atelectasis; J90 Pleural effusion, not elsewhere classified; E87.1 Hypo-osmolality and hyponatremia; I47.20 Ventricular tachycardia, unspecified; J95.811 Postprocedural pneumothorax; D68.9 Coagulation defect, unspecified; I48.92 Unspecified atrial flutter; Y83.2 Surgical operation with anastomosis, bypass or graft as the cause of abnormal reaction of the patient, or of later complication, without mention of misadventure at the time of the procedure; I08.0 Rheumatic disorders of both mitral and aortic valves; G47.33 Obstructive sleep apnea (adult) (pediatric); R91.1 Solitary pulmonary nodule; J43.2 Centrilobular emphysema; R00.1 Bradycardia, unspecified; I48.0 Paroxysmal atrial fibrillation; N40.0 Benign prostatic hyperplasia without lower urinary tract symptoms; D69.59 Other secondary thrombocytopenia; E86.1 Hypovolemia; E87.70 Fluid overload, unspecified; R31.9 Hematuria, unspecified; Z79.01 Long term (current) use of anticoagulants; Z79.82 Long term (current) use of aspirin; Z79.899 Other long term (current) drug therapy; Z87.891 Personal history of nicotine dependence; I50.9 Heart failure, unspecified
CPT/HCPCS: 88304; 88311; 36415; 71045; 71046; 80048; 80053; 81003; 82248; 82330; 82565; 82805; 82810; 82947; 82962; 83036; 83735; 84132; 84302; 84520; 85014; 85018; 85025; 85027; 85049; 85347; 85384; 85576; 85610; 85730; 86850; 86900; 86901; 86920; 87070; 93005; 93306; 93312; 93320; 93325; 93880; 94002; 94660; C1768; J2260; P9045; P9073; Q9950

== ENCOUNTER 2023-05-26 12:07 | Emergency (ER) | payer BC, SELFPAY ==
[2023-05-26 12:16] VITALS: BP 117/70
[2023-05-26 12:54] VITALS: BMI 26.2
[2023-05-26 13:00] VITALS: BP 115/68
[2023-05-26 13:14] LABS: % Basophils 0.4 % (0-2); % Eosinophils 1.3 % (0-6); % Immature Granulocytes 1.6 % (0-0.5); % Lymphocytes 11.7 % (20.5-51.1); % Monocytes 6.3 % (1.7-9.3); % Neutrophils 78.7 % (42.2-75.2); Absolute Eosinophils 0.1 10^3/uL (0-0.7); Absolute Immature Granulocytes 0.2 10^3/uL (0-0.05); Absolute Lymphocytes 1.3 10^3/uL (1.2-3.4); Absolute Monocytes 0.7 10^3/uL (0.1-0.6); Absolute Neutrophils 8.8 10^3/uL (1.4-6.5); Hematocrit 32.6 % (39.0-52.0); Hemoglobin 11.6 g/dL (13.0-18.0); Mean Corp Hgb Conc. 35.6 g/dL (33.0-37.0); Mean Corpuscular Hgb 30.4 pg (27.0-31.0); Mean Corpuscular Volume 85.6 fL (80.0-94.0); Mean Platelet Volume 9.6 fL (7.4-10.4); Nucleated Red Blood Cells % 0 % (-); Platelet Count 367 10^3/uL (130-400); Red Blood Cell Count 3.81 10^6/uL (4.70-6.10); Red Cell Dist. Width 13.2 % (11.5-14.5); White Blood Cell Count 11.2 10^3/uL (4.8-10.8)
--- NOTE | 2023-05-26 13:24 | ED.GENMED ---
History of Present Illness
<Olu Pulido PA-C - Last Filed: 05/26/23 15:52>
General
Chief Complaint: Dizziness
Time Seen by Provider: 05/26/23 12:35
Travel History
Have you had any contact with someone who has COVID-19?: No
Do you have any symptoms of coronavirus? Fever > 100 degrees, chills, cough, shortness of breath, sore throat, loss of taste or smell, muscle aches, or headache?: No
History of Present Illness
History of Present Illness:
62-year-old male presents to the emergency department for evaluation of dizziness and lightheadedness occurring intermittently over the past several days. He is 12 days status post aortic root replacement performed at this hospital by Dr. Garcia. Of
note the patient did have a bout of postoperative atrial fibrillation terminated after IV amiodarone. He is currently maintained on amiodarone as an outpatient but no anticoagulants. States that he noted his heart rates were in the low 50s
yesterday and he did not take his metoprolol last night as a result. Denies any chest pain or shortness of breath. Denies any leg pain or cramping.
Past History
<Olu Pulido PA-C - Last Filed: 05/26/23 15:52>
Past History
ED Past Medical History: CAD
ED Past Surgical History: Cardiac
Social History
Living: with family
Review of Systems
<Olu Pulido PA-C - Last Filed: 05/26/23 15:52>
Review of Systems
Allergies reviewed?: Yes
All Other Systems: ROS reviewed and negative except as documented in HPI and ROS
Phy Exam
<Olu Pulido PA-C - Last Filed: 05/26/23 15:52>
Physical Exam
Physical Exam:
GEN: Well appearing, NAD, WDWN
Eyes: PERRLA, EOMs intact, no scleral icterus
HENT: NCAT, oral mucosa moist, no JVD, no cervical adenopathy.
Lungs: CTAB, no wheezes, rales, rhonchi, normal chest wall excursion
Chest: Median sternotomy well-approximated with no dehiscence
Cardiac: Regular rhythm, controlled rate, no murmur
Abdomen: S, NT, ND, NABS, no masses or hepatosplenomegaly
Neuro: AO x 3
MSK: No gross deformity or ecchymosis. Cordlike nodular inflamed superficial vein to the right forearm consistent with thrombophlebitis
Skin: No rashes, petechiae. Normal color, no pallor or jaundice.
Psych: Calm, cooperative, proper hygiene
Course
<Olu Pulido PA-C - Last Filed: 05/26/23 15:52>
Orders/Labs/Results
Orders:
Orders
05/26/23 12:09
Electrocardiogram (*1) Urgent
Reason for Study: Chest Pain
EKG- Treatment ONCE
05/26/23 12:46
CR Chest - 2 Views Urgent
Comment:
Reason For Exam: CESAR
05/26/23 13:08
Complete Blood Count/With Diff Urgent
Comprehensive Metabolic Panel Urgent
Magnesium Urgent
TSH Reflex To Free T4 Urgent
Abnormal Lab Results
05/26/23
13:08
WBC 11.2 H 10^3/uL
(4.8-10.8)
RBC 3.81 L 10^6/uL
(4.70-6.10)
Hgb 11.6 L g/dL
(13.0-18.0)
Hct 32.6 L %
(39.0-52.0)
Abs Immat Gran (auto) 0.2 H 10^3/uL
(0-0.05)
Absolute Neuts (auto) 8.8 H 10^3/uL
(1.4-6.5)
Absolute Monos (auto) 0.7 H 10^3/uL
(0.1-0.6)
Immature Gran % 1.6 H %
(0-0.5)
Neutrophils % 78.7 H %
(42.2-75.2)
Lymphocytes % 11.7 L %
(20.5-51.1)
Sodium 134 L mmol/L
(135-145)
Glucose 120 H mg/dl
(70-99)
05/26/23 13:08
05/26/23 13:08
Vital Signs
Initial and Last Documented VS:
Initial Vital Signs
Temp Pulse Resp BP Pulse Ox
97.9 F 61 18 117/70 99
05/26/23 12:16 05/26/23 12:16 05/26/23 12:16 05/26/23 12:16 05/26/23 12:16
Last Documented Vital Signs
Temp Pulse Resp BP Pulse Ox
97.9 F 76 21 115/68 99
05/26/23 12:16 05/26/23 13:30 05/26/23 13:30 05/26/23 13:00 05/26/23 12:16
Burtlt;Edin Norman, DO - Last Filed: 05/26/23 13:29>
Orders/Labs/Results
Orders:
Orders
05/26/23 12:09
Electrocardiogram (*1) Urgent
Reason for Study: Chest Pain
EKG- Treatment ONCE
05/26/23 12:46
CR Chest - 2 Views Urgent
Comment:
Reason For Exam: CESAR
05/26/23 13:08
Complete Blood Count/With Diff Urgent
Comprehensive Metabolic Panel Urgent
Magnesium Urgent
TSH Reflex To Free T4 Urgent
Abnormal Lab Results
05/26/23
13:08
WBC 11.2 H 10^3/uL
(4.8-10.8)
RBC 3.81 L 10^6/uL
(4.70-6.10)
Hgb 11.6 L g/dL
(13.0-18.0)
Hct 32.6 L %
(39.0-52.0)
Abs Immat Gran (auto) 0.2 H 10^3/uL
(0-0.05)
Absolute Neuts (auto) 8.8 H 10^3/uL
(1.4-6.5)
Absolute Monos (auto) 0.7 H 10^3/uL
(0.1-0.6)
Immature Gran % 1.6 H %
(0-0.5)
Neutrophils % 78.7 H %
(42.2-75.2)
Lymphocytes % 11.7 L %
(20.5-51.1)
Sodium 134 L mmol/L
(135-145)
Glucose 120 H mg/dl
(70-99)
05/26/23 13:08
05/26/23 13:08
Vital Signs
Initial and Last Documented VS:
Initial Vital Signs
Temp Pulse Resp BP Pulse Ox
97.9 F 61 18 117/70 99
05/26/23 12:16 05/26/23 12:16 05/26/23 12:16 05/26/23 12:16 05/26/23 12:16
Last Documented Vital Signs
Temp Pulse Resp BP Pulse Ox
97.9 F 76 21 115/68 99
05/26/23 12:16 05/26/23 13:30 05/26/23 13:30 05/26/23 13:00 05/26/23 12:16
<Olu Pulido PA-C - Last Filed: 05/26/23 15:52>
MDM/Problems Addressed
MDM/Problems Addressed:
Patient's workup is grossly unremarkable with the exception of rate controlled atrial flutter. I feel this is likely causative for his symptoms. He was seen in consultation by CT surgery and they are in agreement with noreen Bender. No
indication for emergent cardioversion at this time. I did discuss the case with cardiology who will facilitate outpatient follow-up and discussed routine cardioversion as an outpatient if symptoms do not improve
<Olu Pulido PA-C - Last Filed: 05/26/23 15:52>
Comment
Comment:
EKG independently interpreted by me shows rate controlled atrial flutter with variable conduction, heart rate of 69, no ST changes concerning for ischemia
*Critical Care Note
Total Time (30-74mins, 75-104mins- exclusive of procedures): Not Applicable
ED Attending Note
<Olu Pulido PA-C - Last Filed: 05/26/23 15:52>
-
Portions of this chart may have been created with voice recognition software.� Occasional wrong word or��sound alike� substitutions may have occurred due to the inherent limitations of voice recognition software.
<Edin Norman DO - Last Filed: 05/26/23 13:29>
ED Attending Note
Patient seen and examined by attending physician: Yes
I performed the substantive portion of visit, reviewed & personally made and approve the management plan that is documented in note by myself or CHEMO.: Yes
ED Attending Note:
Seen with PA examined independently prior records reviewed status post cardiac surgery aortic root and aortic valve repair by Dr. Garcia is fatigued with slow heart rate looks like he is in a rate controlled a flutter
CT surgery cardiology been notified
Discharge Plan
Departure
Patient Disposition: Home (Routine Discharge)
Date of Disposition: 05/26/23
Time of Disposition: 14:16
Patient with high blood pressure during this ER visit?: No
Discharge Problem:
Atrial flutter
Instructions: Atrial Flutter (DC)
Prescriptions:
New
Eliquis 5 mg tablet
5 mg PO BID Qty: 60 0RF
No Action
ascorbic acid (vitamin C) [Vitamin C] 500 MG tablet
1,000 mg PO BID
acetaminophen [Tylenol Extra Strength] 500 MG tablet
1,000 mg PO Q6HPRN PRN (Reason: pain)
multivitamin Tablet
1 tab PO DAILY
aspirin 81 mg Tablet,Delayed Release (Dr/Ec)
81 mg PO HS
cholecalciferol (vitamin D3) [Vitamin D3] 50 mcg (2,000 unit) Capsule
50 mcg PO HS
Vitamin B-12
1 tab PO DAILY
albuterol sulfate [ProAir HFA] 90 mcg/actuation Hfa Aerosol Inhaler
2 puff INHALATION 6XD PRN (Reason: SOB)
finasteride 5 mg Tablet
5 mg PO QPM
tadalafil 5 mg Tablet
5 mg PO QPM
co Q10-red yeast rice 25-600 mg Capsule
2 cap PO HS
Hold Instructions: Resume on 06/25/23.
Vicki
1 dose PO DAILY
Rx Instructions:
bowel health
cyclobenzaprine 10 mg Tablet
5 mg PO TID PRN (Reason: muscle spasm) Qty: 30 0RF
amiodarone [Pacerone] 200 mg Tablet
200 mg PO BID Qty: 60 0RF
Entresto 24-26 mg Tablet
1 tab PO BID Qty: 30 0RF
gabapentin 100 mg Capsule
100 mg PO TID Qty: 21 0RF
oxycodone 5 mg Tablet
5 mg PO Q4HPRN PRN (Reason: severe pain) Qty: 10 0RF
dapagliflozin propanediol [Farxiga] 10 mg Tablet
10 mg PO DAILY Qty: 30 0RF
amiodarone 200 mg tablet
200 mg PO DAILY Qty: 30 0RF
Rx Instructions:
start 30 days after discharge
furosemide [Lasix] 20 mg tablet
20 mg PO DAILY Qty: 7 0RF
Rx Instructions:
Take daily for 7 days, then stop
metoprolol succinate [Toprol XL] 50 mg tablet extended release 24 hr
50 mg PO DAILY Qty: 30 0RF
potassium chloride 10 mEq capsule, extended release
10 meq PO DAILY Qty: 7 0RF
Rx Instructions:
TAKE ONLY WHILE ON LASIX
Referrals:
Curry Conde MD [Active] -
Carlos A Steel DO [Family Provider] -
Activity Restrictions/Additional Instructions:
Follow up with cardiology early next week
You may cut your metoprolol by 1/2 (take 25mg) or hold completely if your HR is <80
Return if symptoms worsen or if your heart rate is consistently >110
Interventions
Interventions:
*Risk Screen - Suicide Last Done: 05/26/23 12:55
*General Assessment Last Done: 05/26/23 12:16
ED- Fall Risk Assessment Last Done: 05/26/23 13:46
*ED COVID-19 Vaccine History Last Done: 05/26/23 12:16
ED- Neurological Assessment Last Done: 05/26/23 13:46
ED- Cardiac Assessment Last Done: 05/26/23 13:46
[2023-05-26 13:52] LABS: ALT (SGPT) 35 U/L (0-50); AST (SGOT) 27 U/L (17-59); Albumin 3.5 g/dl (3.5-5.0); Alkaline Phosphatase 86 U/L (38-126); Blood Urea Nitrogen 19 mg/dl (9-20); Calcium 9.3 mg/dl (8.4-10.2); Carbon Dioxide 27 mmol/L (22-30); Chloride 98 mmol/L (98-107); Estimated Creatinine Clearance 102 ml/min; Glucose 120 mg/dl (70-99); Magnesium 2.3 mg/dl (1.6-2.3); Potassium 4.4 mmol/L (3.5-5.1); Sodium 134 mmol/L (135-145); Total Bilirubin 0.5 mg/dl (0.2-1.3); Total Protein 6.4 g/dl (6.3-8.2); eGFR > 60.00
[2023-05-26 14:11] LABS: TSH Reflex To Free T4 2.58 uIU/ml (0.47-4.68)
--- NOTE | 2023-05-26 14:31 | W.PN.UPDATE ---
Update Note
Progress Note Update
I spoke with Mr. Galvez this morning regarding ongoing issues with lightheadedness and bradycardia. He was noted to have a pulse in the low 50s on home BP monitoring system. He had stopped his lopressor last night after the bradycardia was first
noted.
I recommended he come to the ED for formal EKG. This shows rate controlled aflutter. He was not discharged on anticoagulation and his MELANIE was not ligated at the time of surgery due to dense adhesions associated with redo surgery. This places him at
increased risk for stroke.
We recommend cardiology evaluation, anticoagulation (patient previously on eliquis. Has had PAF with prior AVN ablation), and ultimate DAHIANA/DCCV if cardiology agrees. Timing based on their recommendations. Discussed with the ED provider who will
prescribe eliquis on discharge.
Sternal incision is healing well, sternum is stable, and there are no other surgery related concerns at this time. His pain is well controlled.
Further management per ED staff & cardiology
I discussed the above plan with Dr. Garcia who is in agreement. I answered his and his 's questions to their satisfaction.
== END 2023-05-26 16:17 | disposition home or self-care (01) ==
LOC: EMR 12:07
PROVIDERS: Physician Assistant; EMERGENCY PHYSICIAN Emergency Medicine; FAMILY PHYSICIAN Family Medicine
DX: I48.92 Unspecified atrial flutter (principal)
CPT/HCPCS: 99285; 71046; 80053; 83735; 84443; 85025; 93005